=== PATIENT | male | born 1960 | race Caucasian/White ===

== ENCOUNTER 2018-07-31 10:05 | Outpatient (CLI) | payer BC, SELFPAY ==
--- NOTE | 2018-07-31 10:00 | DI.RAD_ITS ---
SYMPTOM/DIAGNOSIS: RT FOOT PAIN RIGHT FOOT: Two views. There is a moderate sized spur at the plantar surface of the calcaneus. There are osteophytes seen in the tarsal bones, particularly the tarsal metatarsal joints. There do appear to be hammer toe deformities of the second through fifth toes. No radiopaque foreign bodies are seen in the soft tissues. This study is limited. No priors for comparison. IMPRESSION: Degenerative changes of the right foot.
== END 2018-07-31 10:25 ==
PROVIDERS: PCP Nurse Practitioner; Visit Provider Physician Assistant
DX: M79.671 Pain in right foot (principal); M19.071 Primary osteoarthritis, right ankle and foot
CPT/HCPCS: 73620

== ENCOUNTER 2018-11-30 00:09 | Outpatient (CLI) | payer BC, SELFPAY ==
[2018-11-30 09:52] LABS: HCT 43.1 % (40.0-50.0); HGB 14.9 g/dL (13.5-17.5); Mean Corp. HGB Concentration 34.6 g/dL (32.0-36.0); Mean Corpuscular Hemoglobin 31.8 pg (27.0-33.0); Mean Corpuscular Volume 92.1 fL (80-95); Mean Platelet Volume 11.4 fL (8.0-11.0); Platelet Count 148 x1000/uL (130-400); RBC 4.68 m/cumm (4.50-6.00); RBC Distribution Width 14.3 % (11.8-14.1); White Blood Cell Count 6.04 k/cumm (4.4-10.8)
[2018-11-30 10:27] LABS: ALT 29 U/L (12-78); AST 21 U/L (15-37); Albumin 3.7 g/dL (3.4-5.0); Alkaline Phosphatase 97 U/L (46-116); Anion Gap 9.1 mmol/L (3-11); BUN 14 mg/dL (7-18); Bilirubin, Total 0.6 mg/dL (0.2-1.0); CO2 27.9 mmol/L (21.0-32.0); CREATININE 0.95 mg/dL (0.70-1.30); Calcium 8.9 mg/dL (8.5-10.1); Chloride 106 mmol/L (98-107); Cholesterol 119 mg/dL (50-200); Glucose 103 mg/dL (70-100); HDL Cholesterol 58 mg/dL (40-60); LDL CHOLESTEROL 50 mg/dL (<100); Potassium 4.1 mmol/L (3.5-5.1); Sodium 143 mmol/L (136-145); Total Protein 6.7 g/dL (6.4-8.2); Triglyceride 59 mg/dL (30-150)
[2018-11-30 10:48] LABS: ESR 6 MM/HR (1-20)
[2018-12-02 12:35] LABS: Lyme Ab w Rflx to Lyme Confirm Negative
[2018-12-02 13:06] LABS: Rheumatoid Factor <8 IU/mL (<12.5)
[2018-12-02 14:01] LABS: ANA Interpretation Negative (NEGAT)
== END 2018-11-30 00:29 ==
PROVIDERS: PCP Nurse Practitioner; Visit Provider Nurse Practitioner
DX: F32.9 Major depressive disorder, single episode, unspecified (principal); M25.549 Pain in joints of unspecified hand; R53.83 Other fatigue; Z13.220 Encounter for screening for lipoid disorders
CPT/HCPCS: 36415; 80053; 80061; 83721; 85027; 85652; 86038; 86431; 86618

== ENCOUNTER 2019-09-27 09:00 | Outpatient (CLI) | payer BC, SELFPAY ==
[2019-09-27 11:41] LABS: ALT 28 U/L (16-63); AST 7 U/L (15-37); Alkaline Phosphatase 105 U/L (46-116); Anion Gap 7.7 mmol/L (3-11); BUN 18 mg/dL (7-18); Bilirubin, Total 0.6 mg/dL (0.2-1.0); CO2 29.3 mmol/L (21.0-32.0); CREATININE 0.89 mg/dL (0.70-1.30); Calcium 8.9 mg/dL (8.5-10.1); Calculated LDL 63 mg/dL; Chloride 105 mmol/L (98-107); Cholesterol 126 mg/dL (<200); Glucose 93 mg/dL (74-106); HDL Cholesterol 54 mg/dL (40-60); Potassium 4.4 mmol/L (3.5-5.1); Sodium 142 mmol/L (136-145); Total Protein 6.7 g/dL (6.4-8.2); Triglyceride 47 mg/dL (<150); Vitamin B12 474 pg/mL (193-986)
[2019-09-28 09:23] LABS: Hemoglobin A1C 5.7 % (4.5-6.2)
[2019-09-29 12:58] LABS: PSA, Screening 1.4 ng/mL (0.0-3.5)
[2019-09-29 15:52] LABS: Albumin 64.3 % (55.8-66.1); Total Protein 6.7 g/dL (6.3-8.2)
== END 2019-09-27 09:20 ==
PROVIDERS: PCP Nurse Practitioner; Visit Provider Nurse Practitioner
DX: R73.01 Impaired fasting glucose (principal); R41.89 Other symptoms and signs involving cognitive functions and awareness; R41.840 Attention and concentration deficit; R41.3 Other amnesia; G62.9 Polyneuropathy, unspecified; E66.9 Obesity, unspecified; Z12.5 Encounter for screening for malignant neoplasm of prostate
CPT/HCPCS: 36415; 80053; 80061; 84153; 82607; 83036; 84165; 84443

== ENCOUNTER 2019-10-02 15:12 | Outpatient (CLI) | payer BC, SELFPAY ==
--- NOTE | 2019-10-02 14:46 | DI.RAD_ITS ---
EXAM: XR KNEE LT 3V AP,LAT,ZEV INDICATION: left knee pain. COMPARISON: No exams were available for comparison TECHNIQUE: 2D digital imaging was performed. FINDINGS: The joint spaces are well maintained. There is spurring at the articular aspect of the patella. No joint effusion is visible. There are prominent varicosities. IMPRESSION: Degenerative changes of the patellofemoral joint.
== END 2019-10-02 15:32 ==
PROVIDERS: PCP Nurse Practitioner; Visit Provider Nurse Practitioner
DX: M25.562 Pain in left knee (principal); M22.8X2 Other disorders of patella, left knee
CPT/HCPCS: 73562

== ENCOUNTER 2019-10-07 00:39 | Outpatient (CLI) | payer BC, SELFPAY ==
--- NOTE | 2019-10-07 08:30 | ETT_ITS ---
APPROVED REPORT Exam: Exercise Treadmill Patient Location: Out-Patient Room/Bed: Stress Nurse: Corinna Yoon RN BMI: 32.32 Baseline Rhythm: Sinus with ventricular trigeminy. Indications: Family h/o heart disease. SOB. Cardiac arrythmia. Medical History Medical History: Depression Allergies: No known drug allergies Cardiac Risk Factors: FHX of CAD Exercise History: Physically active Physical Disabilities: Knees Lung Sounds: Clear to auscultation Heart Sounds: Bradycardia Stress Test Details Test: Exercise stress testing was performed using a Manuel protocol. Rest Stress HR Max Heart Rate (APMHR): 163 bpm Resting HR Supine: 50 bpm Target HR (85% APMHR): 138 bpm Resting HR Standin bpm Max HR Achieved: 140 bpm % of APMHR: 85 HR response to stress: Normal HR response to stress BP Resting BP Supine: 158/94 mmHg Resting BP Standin/78 mmHg Max BP: 184/80 mmHg Recovery BP: 150/80 mmHg BP response to stress: Normal blood pressure response to stress. ECG Resting ECG: Sinus Bradycardia with multiple PVCs Ectopy: PVCs. Stress ECG: Sinus Tachycardia with frequent ventricular bigeminy and trigeminy patterns, frequent PVCs. ST Change: No significant ST segment changes. Recovery ECG: Sinus Rhythm Recovery ST Change: normal Recovery Arrhythmia: Intermittent ventricular trigeminy. PVCs Clinical Time of Stop for Manuel: 10:00 Reason for Termination: Fatigue Stress Symptoms: General Fatigue Exercise duration: 10 min00 sec Highest Stage Achieved: Stage 4: 4.2 mph at 16% grade. Exercise capacity: 11.80 METs Functional Capacity: Average Capacity Scale: Active Stress ECG Conclusion 1. Patient exercised for 10 minutes (11.8 METS) 2. Patient had no symptoms of ischemia during exercise. 3. There were frequent PVCs during stress and recovery. 4. There is no evidence of ischemia on ECG. 5. The Damon Score (10) estimates an annual cardiovascular mortality of 0% and a five year survival of 96%. Using the Damon Score there is a low probability of any angiographic coronary disease. Protocol Used: Manuel Protocol Stress Test Summary STAGE Time (mins) Speed (mph) Grade (%) HR BP SYMPTOMS METS Supine 50 158/94 Standing 55 160/78 1 3 1.7 10 82 164/80 4.6 2 6 2.5 12 104 170/80 7 3 9 3.4 14 130 184/80 10.2 4 12 4.2 16 140 12.9 17.2 1 min recovery 122 3 min recovery 93 170/60 6 min recovery 83 150/80
== END 2019-10-07 00:59 ==
PROVIDERS: PCP Nurse Practitioner; Visit Provider Nurse Practitioner
DX: R06.02 Shortness of breath (principal); I49.9 Cardiac arrhythmia, unspecified; I49.3 Ventricular premature depolarization; Z82.49 Family history of ischemic heart disease and other diseases of the circulatory system
CPT/HCPCS: 93017

== ENCOUNTER 2019-10-16 00:38 | Outpatient (CLI) | payer BC, SELFPAY ==
--- NOTE | 2019-10-16 10:21 | DI.US_ITS ---
APPROVED REPORT EXAM: Comprehensive 2D, Doppler, and color-flow Echocardiogram Patient Location: Out-Patient Evp General Counsel: Jada Forbes RDCS (AE) Indications: two episodes SOB, irregular HR, fatigue, dizziness. family hx of heart disease. irregula r HR. z82.49 family hx of ischemic heart disease and other disease of circulatory system. i49.9 car diac arrhythmia, unspecified Conclusion Borderline LVH , EF 60-65% Wall motion is normal Left atrium is mildly dilated Trace aortic regurgitation Thickened mitral leaflets with trace to mild regurgitation Mild tricuspid regurgitaiton. Trace pulmonic regurgitation. Estimated RVSP 33 mm Hg Wall motion Left Ventricle The left ventricle is normal size. The left ventricular systolic function is normal. The left ventric ular ejection fraction is within the normal range. Borderline left ventricular hypertrophy. There is normal LV segmental wall motion. abnormal relax with valsalva. LVEF is estimated to be 60-65%. Right Ventricle The right ventricle is normal size. The right ventricular systolic function is normal. Atria Left atrium is mildly dilated. The right atrium size is top normal. Aortic Valve The Aortic valve is mildly thickened. Aortic valve is trileaflet. There is no aortic valvular stenosi s. Trace aortic regurgitation. Mitral Valve Mitral valve leaflets are mildly thickened. Trace to mild mitral regurgitation. Tricuspid Valve Tricuspid valve leaflets are thickened but open well. Mild tricuspid regurgitation. Pulmonic Valve The pulmonary valve appears normal in structure. Trace pulmonic regurgitation. Great Vessels The aortic root is normal in size. IVC is mildly dilated, and collapses >50% with inspiration. Pericardium There is no pericardial effusion. 2D Dimensions IVSd 1.25 cm M: 0.6-1.2 LV EDV A2C 129.10 mL PWd 1.10 cm M: 0.6 - 1.2 LV EDV A4C 140.50 mL LVDd 5.70 cm M: 4.2 - 5.8 LA Volume Index A2C 35.84 mL/m2 LVDs 3.70 cm M: 2.5 - 4.0 LA Volume Index A4C 47.06 mL/m2 Aortic Root 3.15 cm M: 3.1 - 3.7 LA Volume Index Biplane 41.14 mL/m2 RA Area A4C 18.73 cm2 LA Area A4C 27.91 cm2 LVOT 2.10 cm (M/F) 1.5-2.5 LA Area A2C 24.31 cm2 Ascending Aorta 3.40 cm M: 2.6 - 3.4 EF AP4 61.28 % LVEF (Teich) 63.08 % EF AP2 60.26 % LVEF (Jacob's) 61.32 % M: 52 - 72 EF BP 61.32 % LV Volume 97.33 mL M: 62 - 150 LV Volume Index 41.59 mL/m2 M: 34 - 74 FS 34.65 % LV Diastology E/A Ratio 1.7 MED E' 0.19 (>0.07 m/s) LV E/e MED 6.85 (<14) LAT E' 0.12 (>0.1 m/s) LV E/e LAT 10.50 (<14) Aortic Valve LVOT Area 3.47 cm2 LVOT Vmax 1.65 m/s LVOT Mean Donnell. 1.05 m/s LVOT Peak Gr. 10.8 mmHg LVOT Mean Gr. 5.4 mmHg AoV Area/ BSA (Vmax) 1.23 cm2/m2 LVOT VTI 0.367 m AoV Vmax 1.98 (0.5-1.3 m/s) AIRAM Mean Donnell. Index 1.15 cm2/m2 AoV Mean Donnell. 1.35 m/s AoV Peak Grad 15.7 mmHg AoV Mean Grad 8.4 (<5 mmHg) AoV VTI 0.482 (0.18-0.25 m) AoV Area VTI 2.86 (2.5-4.5 cm2) AoV Area/ BSA (VTI) 1.22 cm/m2 Mitral Valve MV E Max Donnell. 1.29 (0.4-1.3 m/s) MV A Velocity 0.75 (0.4-1.3 m/s) E/A Ratio 1.63 MV Decel. Time 232.05 (160-240 msec) MV PHT 67.30 msec MVA PHT 3.25 cm2 Pulmonary Valve PV Peak Velocity 1.15 (0.5-1.5 m/s) [place] End VMAX 99.78 cm/s RVOT Peak Gr. 1.78 mmHg RVOT Peak Donnell. 0.67 m/s RVOT Mean Gr. 0.95 mmHg RVOT VTI 0.15 m Tricuspid Valve TR P. Velocity 2.49 m/s TV Regurg Vmax 2.49 m/s RAP Estimate 8.00 mmHg RVSP 32.82 mmHg TR P. Gradient 24.80 mmHg
== END 2019-10-16 00:58 ==
PROVIDERS: PCP Nurse Practitioner; Visit Provider Nurse Practitioner
DX: R06.02 Shortness of breath (principal); I49.9 Cardiac arrhythmia, unspecified; R53.83 Other fatigue; R42 Dizziness and giddiness; I34.8 Other nonrheumatic mitral valve disorders; Z82.49 Family history of ischemic heart disease and other diseases of the circulatory system
CPT/HCPCS: 93306

== ENCOUNTER 2020-03-10 16:03 | Emergency (ER) | payer BC, SELFPAY ==
[2020-03-10 16:06] VITALS: BP 161/97; PULSE 55; RESP 16; TEMP 36.8; O2SAT 98
--- NOTE | 2020-03-10 16:24 | ED.GENADUL_ITS ---
Discharge Plan Disposition Patient Disposition: HOME Condition: Stable Discharge Details Chief Complaint: Laceration Clinical Impression: Laceration of toe Primary Care Provider: Chayo Madden ED Provider: Bekah Chou Home Meds and New Rx's Prescriptions: Continued econazole 1 % cream 1 applic Topical DAILY PRN (Reason: groin rash) Qty: 30 RF: 3 methylphenidate HCl [Concerta] 54 mg tablet extended release 24hr 54 mg PO DAILY MDD 54mg Qty: 30 RF: 0 acetaminophen 325 MG tablet 650 mg PO DAILY PRNRF: 0 loratadine 10 MG tablet 10 mg PO DAILY PRNRF: 0 famotidine 20 MG tablet 20 mg PO DAILY PRNRF: 0 triamcinolone acetonide 15 GM cream 1 beatriz Topical DAILY PRNQty: 2 RF: 1 elastic stockings 2 units Miscellaneous Qty: 2 RF: 1 ibuprofen 200 mg tablet 600 mg PO .QD PRNRF: 0 sertraline 100 mg tablet 50 mg PO DIRECTED RF: 0 Discharge Instructions Instructions: Laceration (ED) Additional Instructions: Keep wound clean and dry. Cover wound with bandage if risk of contamination. Otherwise you can keep the wound open to air if resting at home to allow edges to dry and heal. Alternate tylenol and motrin as needed and directed for pain. Return to the emergency department or follow-up with your primary care doctor in 1 week for suture removal. Discharge Data Discharge Date/Time-TO BE ENTERED AT DEPARTURE: 03/10/20 17:42 Discharge Physician: Bekah Chou Medical Decision Making 60-year-old male presents with left great toe laceration sustained with a chainsaw at home prior to arrival. There is a 2 cm straight laceration with 1 cm flap proximally on dorsal aspect of proximal phalanx. Neurovascular intact. X-ray obtained and negative. Toe anesthetized with digital block and irrigated. 3 sutures placed. Topical antibiotic ointment and nonadherent dressing and tube gauze applied. Patient advised to keep wound clean and dry. Advised to return here or follow-up with his primary care doctor in 1 week for suture removal. Insert return precautions Medical Records Medical records reviewed: Yes I reviewed the patient's medical records. Imaging Data Radiologic Study: Radiologist's impression: XR Left Toe(s) Exam date and time: 03/10/2020 4:43 PM Age: 60 years old Clinical indication: Other: Chainsaw cut toe, R/O fracture/fb TECHNIQUE: Imaging protocol: XR Left toes. Views: Minimum 2 views. COMPARISON: No relevant prior studies available. FINDINGS: Bones/joints: Mild degenerative changes. No acute fracture. No acute malalignment. Soft tissues: Soft tissue swelling 1st toe. No radiodense foreign body. IMPRESSION: No acute bony abnormality. HPI General Mode of arrival: ambulatory . Date/Time Provider Initiated Documentation: 03/10/20 16:09 . Limitations to Documentation: no limitations . Information obtained by: patient . History of Present Illness 60 year old M presents to the emergency department with the chief complaint of L great toe laceration sustained with chainsaw at home , described as moderate, Quality is described as sharp, and is localized to the left and lower extremity (1st toe). Patient started experiencing this hour(s) (1) and it has been constant. No relieving factors improve symptom(s), No exacerbating factors reported . Patient notes no other symptoms.. Patient did receive the following treatments prior to arrival, none Related Data Home Medications Medication Instructions Recorded Confirmed acetaminophen 650 mg PO DAILY PRN 02/20/13 03/10/20 famotidine 20 mg PO DAILY PRN tab-cap 02/20/13 03/10/20 loratadine 10 mg PO DAILY PRN 02/20/13 03/10/20 triamcinolone acetonide 1 beatriz TOPICAL DAILY PRN #2 script 02/25/15 03/10/20 ibuprofen 200 mg tablet 600 mg PO .QD PRN tab 09/24/19 03/10/20 econazole 1 % topical cream 1 applic TOPICAL DAILY PRN #30 gm 10/02/19 03/10/20 methylphenidate HCl 54 mg 54 mg PO DAILY #30 tab MDD 54mg 01/01/20 03/10/20 tablet,extended release 24 hr sertraline 50 mg PO DIRECTED 03/10/20 03/10/20 Previous Rx's Medication Instructions Recorded econazole 1 % topical cream 1 applic TOPICAL DAILY PRN #30 gm 10/02/19 methylphenidate HCl 54 mg 54 mg PO DAILY #30 tab MDD 54mg 01/01/20 tablet,extended release 24 hr Allergies Allergy/AdvReac Type Severity Reaction Status Date / Time No Known Allergies Allergy Verified 03/10/20 16:09 General Stated Complaint: Laceration YENI: 3 Review of Systems All systems reviewed & are unremarkable except as noted in HPI and below PFSH Medical History (Updated 03/10/20 @ 17:39 by Bekah Chou DO) 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 Concentration deficit (Ruled-out) Depression Depressive disorder, not elsewhere classified (Chronic 06/02/13) Difficulty processing information (Acute) GERD (gastroesophageal reflux disease) Poor memory (Acute) Surgical History Colonoscopy - IV Sedation (05/14/15) Colonoscopy - MAC (05/03/18) Open Carpal Tunnel release right Tonsillectomy and adenoidectomy Social History (Updated 01/01/20 @ 15:52 by Radha No LPN) Smoking/Tobacco Use Status: Former Tobacco Use Tobacco: How many years used: 10 Alcohol Intake: current Alcohol Intake frequency: holidays/special occasions only Alcohol type: beer and wine Drug use: Never Substance use type: does not use Household members: spouse Number of Children: 0 Communication Needs: None current occupation: [employer] Current gender identity: male What type of physical activity do you participate in: other Details: wood,shovel, snowshoe Seatbelt use: sometimes Working smoke detector in home: Yes Fire extinguisher in home: Yes Carbon monox detector in home: Yes Do you feel safe at home: Yes Do you feel safe in your relationship?: Yes Exam Const General: cooperative, healthy appearing and no acute distress HENMT Head: normal to inspection Mouth: oral mucosae normal Eyes General: appearance normal, both eyes and all related structures Neck Neck: normal visual inspection Resp Effort & Inspection: normal respiratory effort and able to speak in complete sentences Cardio Rate: regular rate Skin General skin exam: no rashes or lesions noted Neuro General: patient alert, patient awake and patient oriented x3 Motor: muscle tone normal throughout Extrem Ankle/foot/toe images: 1. 2cm straight laceration with 1 cm flap on medial aspect noted on dorsal aspect of proximal phalanx. Bleeding controlled. No obvious foreign bodies noted. No deformities noted. No pain with range of motion. Other: Left DP/PT pulses intact. Psych Appearance: grossly normal Affect: normal affect Course Vital Signs Vital signs: Vital Signs Temperature 98.2 F 03/10/20 16:06 Pulse 55 L 03/10/20 16:06 Respiratory Rate 16 03/10/20 16:06 Blood Pressure 161/97 H 03/10/20 16:06 Pulse Oximetry 98 03/10/20 16:06 Temperature 98.2 F 03/10/20 16:06 Temperature Source Skin 03/10/20 16:06 Pulse 55 L 03/10/20 16:06 Respiratory Rate 16 03/10/20 16:06 Respiratory Effort 03/10/20 16:11 Blood Pressure 161/97 H 03/10/20 16:06 Blood Pressure Position Sitting 03/10/20 16:06 Pulse Oximetry 98 03/10/20 16:06 Oxygen Delivery Method Room Air 03/10/20 16:06 Oxygen Flow Rate 0 03/10/20 16:06 Pain Level 0 03/10/20 16:06 Procedures Laceration Laceration 1: Site: lower extremity (1st toe) Side (If applicable): left Size (cm): 2 Description: linear and flap Depth: simple, single layer Local Anesthetic: Lidocaine 1% Amount of anesthesia used (mL): 4 Pre-repair: wound explored, irrigated extensively and deep structures intact Skin layer closed with: nylon Size (cm): 5-0 Number of sutures: 3 Technique: simple, interrupted
[2020-03-10] MEDS: Acetaminophen 500 MG TAB (16:30)
--- NOTE | 2020-03-10 16:42 | DI.RAD_ITS ---
EXAM: XR TOE LT GREAT CLINICAL HISTORY: chainsaw cut toe, r/o fracture/fb. TECHNIQUE: 2D digital imaging was performed. COMPARISON: No exams were available for comparison FINDINGS: BONES: No acute fracture is present. No bony destructive lesion is seen. Mild degenerative changes. JOINTS: No dislocation present. SOFT TISSUE: There is soft tissue swelling of the great toe. No radiopaque foreign body is identifie d. IMPRESSION: No evidence of acute fracture, dislocation, or subluxation. No radiopaque foreign body. DATA REPOSITORY: RADIATION DOSE DELIVERED:
--- NOTE | 2020-03-10 17:01 | DI.VRAD_ITS ---
PROCEDURE INFORMATION: Exam: XR Left Toe(s) Exam date and time: 03/10/2020 4:43 PM Age: 60 years old Clinical indication: Other: Chainsaw cut toe, R/O fracture/fb TECHNIQUE: Imaging protocol: XR Left toes. Views: Minimum 2 views. COMPARISON: No relevant prior studies available. FINDINGS: Bones/joints: Mild degenerative changes. No acute fracture. No acute malalignment. Soft tissues: Soft tissue swelling 1st toe. No radiodense foreign body. IMPRESSION: No acute bony abnormality. Dictated and Authenticated by: Jose Landaverde MD. Ordering:SHAYNA Godfrey MD
== END 2020-03-10 17:42 | disposition home or self-care (01) ==
PROVIDERS: Emergency Provider Physician Assistant; PCP Nurse Practitioner
DX: S91.112A Laceration without foreign body of left great toe without damage to nail, initial encounter (principal); W29.3XXA Contact with powered garden and outdoor hand tools and machinery, initial encounter
CPT/HCPCS: 12001; 73660

== ENCOUNTER 2020-12-10 02:45 | Outpatient (CLI) | payer BC, SELFPAY ==
[2020-12-10 07:48] LABS: Hemoglobin A1C 5.7 % (<5.7)
[2020-12-10 08:10] LABS: HGB 14.6 g/dL (13.5-17.5); MCH 30.9 pg (27.0-33.0); MCV 91.1 fL (80-95); MPV 10.7 fL (8.0-11.0); Platelet Count 180 10^3/uL (130-400); RBC 4.72 10^6/uL (4.36-5.78); RDW 12.5 % (11.8-14.1); RDW-SD 41.8 fL; WBC 7.76 10^3/uL (4.4-10.8)
[2020-12-10 09:46] LABS: ALT 31 U/L (16-63); AST 17 U/L (15-37); Alkaline Phosphatase 107 U/L (46-116); Anion Gap 10.5 mmol/L (3-11); BUN 16 mg/dL (7-18); Bilirubin, Total 0.7 mg/dL (0.2-1.0); CO2 28.5 mmol/L (21.0-32.0); Calculated LDL 52 mg/dL (<100); Chloride 103 mmol/L (98-107); Cholesterol 112 mg/dL (<200); Glucose 99 mg/dL (74-106); HDL Cholesterol 48 mg/dL (40-60); Sodium 142 mmol/L (136-145); TSH (W/Ref FT4) 1.19 uIU/mL (0.36-3.74); Total Protein 6.8 g/dL (6.4-8.2); Triglyceride 60 mg/dL (<150); Vitamin B12 448 pg/mL (193-986)
[2020-12-10 17:13] LABS: PSA, Screening 1.7 ng/mL (0.0-3.5)
== END 2020-12-10 02:46 | disposition home or self-care (01) ==
LOC: LBO 02:45
PROVIDERS: PCP Nurse Practitioner; Visit Provider Nurse Practitioner
DX: F90.2 Attention-deficit hyperactivity disorder, combined type (principal); I10 Essential (primary) hypertension; E66.9 Obesity, unspecified; I87.2 Venous insufficiency (chronic) (peripheral); R20.2 Paresthesia of skin; Z12.5 Encounter for screening for malignant neoplasm of prostate
CPT/HCPCS: 36415; 80053; 80061; 84153; 85027; 82607; 83036; 84443

== ENCOUNTER 2021-01-31 15:20 | Outpatient (CLI) | payer BC, SELFPAY ==
--- NOTE | 2021-01-31 15:15 | RT.EKG_ITS ---
APPROVED REPORT Exam: Resting ECG Patient Location: O HR:50 bpm ECG Measurements Heart Rate 50 AXIS LA 170 P 45 QRSd 117 QRS 37 QT 407 T 31 QTc 373 Conclusion Sinus bradycardia...rate< 60 Nonspecific intraventricular conduction delay...QRSd >115mS, not LBBB/RBBB
== END 2021-01-31 15:21 | disposition home or self-care (01) ==
LOC: DI.KIM 15:20
PROVIDERS: PCP Nurse Practitioner; Visit Provider Nurse Practitioner
DX: Z51.81 Encounter for therapeutic drug level monitoring (principal)
CPT/HCPCS: 93010

== ENCOUNTER 2021-02-19 14:23 | Emergency (ER) | payer BC, SELFPAY ==
[2021-02-19 14:26] VITALS: BP 136/74; PULSE 70; RESP 16; TEMP 36.4; O2SAT 97
--- NOTE | 2021-02-19 14:30 | DI.RAD_ITS ---
Exam(s) XR FINGER LT RING EXAM: XR FINGER LT RING EXAM DATE/TIME: CLINICAL HISTORY: laceration, ?fracture. TECHNIQUE: 2D digital imaging was performed. COMPARISON: None. FINDINGS: BONES: There is an acute transverse fracture through the terminal tuft of the ring finger. The dista l fracture fragment is displaced distally and dorsally. No bony destructive lesion is seen. Degenera tive changes are seen in the finger. JOINTS: No dislocation is present. SOFT TISSUE: There is soft tissue swelling of the 4th finger. IMPRESSION: Acute displaced terminal tuft fracture of the ring finger. DATA REPOSITORY: RADIATION DOSE DELIVERED:
--- NOTE | 2021-02-19 14:41 | ED.GENADUL_ITS ---
Discharge Plan Disposition Patient Disposition: HOME Condition: Stable Discharge Details Clinical Impression: Laceration of left ring finger, Fracture of phalanx of left ring finger Primary Care Provider: hCayo Madden ED Provider: Praneeth Peres Home Meds and New Rx's Prescriptions: New amoxicillin-pot clavulanate [Augmentin] 875-125 mg tablet 1 tab PO BID Qty: 14 RF: 0 Continued econazole 1 % cream 1 applic Topical DAILY PRN (Reason: groin rash) Qty: 30 RF: 3 triamcinolone acetonide 0.1 % cream 1 applic Topical DAILY PRN (Reason: BLE rashes) Qty: 80 RF: 3 ibuprofen 600 mg tablet 600 mg PO TID PRN (Reason: pain) Qty: 180 RF: 5 Vyvanse 60 mg capsule 60 mg PO DAILY MDD 60mg Qty: 28 RF: 0 metoprolol succinate 50 mg tablet extended release 24 hr 50 mg PO DAILY Qty: 90 RF: 3 hydrochlorothiazide 25 mg tablet 25 mg PO DAILY Qty: 90 RF: 3 acetaminophen 325 MG tablet 650 mg PO DAILY PRNRF: 0 loratadine 10 MG tablet 10 mg PO DAILY PRNRF: 0 famotidine 20 MG tablet 20 mg PO DAILY PRNRF: 0 elastic stockings 2 units Miscellaneous Qty: 2 RF: 1 Discharge Instructions Instructions: Skin Adhesive Care (ED) Additional Instructions: call orthopedics Sunday for an appointment if you have redness spreading down the hand, severe worsening pain or feel more ill return to the emergency department Referrals: Kalpesh Rooney MD [ [facility] STAFF PHYSICIAN] - Medical Decision Making 61 yo male comes in with left ring finger injury. He states it got caught in a wood splitter prior to arrival, denies falling or other injuries. Has a posterior distal ring finger laceration that involves the middle of the nail and runs horizontally, and is about 2cm in length. Normal sensation and capillary refill and can fully extend and flex at the mcp, pip and dip joints. Given location of laceration will obtain xray to evaluate for underlying fracture. xray shows distal tuft fracture, closed the wound with sutures and skin adhesive without complications. Will have him f/u with ortho and place on prophylactic antibiotics, return precautions given Differential Diagnosis Differential Diagnosis: laceration, fracture Medical Records Medical records reviewed: Yes I reviewed the patient's medical records. Imaging Data Radiologic Study: Attestation: I personally reviewed and interpreted this imaging study as follows: Imaging: X-Ray Radiologist's impression: IMPRESSION: Displaced tuft fracture of 4th finger. HPI General Mode of arrival: ambulatory . Date/Time Provider Initiated Documentation: 02/19/21 14:23 . Limitations to Documentation: no limitations . Information obtained by: patient . History of Present Illness 61 year old M presents to the emergency department with the chief complaint of left ring finger injury, described as moderate, Patient reports no radiation. Patient started experiencing this hour(s) (1) and it has been constant. No relieving factors improve symptom(s), No exacerbating factors reported . Patient notes no other symptoms.. Patient did receive the following treatments prior to arrival, none Related Data Home Medications Medication Instructions Recorded Confirmed acetaminophen 650 mg PO DAILY PRN 02/20/13 11/30/20 famotidine 20 mg PO DAILY PRN tab-cap 02/20/13 02/19/21 loratadine 10 mg PO DAILY PRN 02/20/13 02/19/21 econazole 1 % topical cream 1 applic TOPICAL DAILY PRN #30 gm 10/02/19 02/19/21 ibuprofen 600 mg tablet 600 mg PO TID PRN #180 tab 01/10/21 02/19/21 triamcinolone acetonide 0.1 % 1 applic TOPICAL DAILY PRN #80 g 01/10/21 02/19/21 topical cream hydrochlorothiazide 25 mg tablet 25 mg PO DAILY #90 tab 01/31/21 02/19/21 lisdexamfetamine 60 mg capsule 60 mg PO DAILY #28 cap MDD 60mg 01/31/21 02/19/21 metoprolol succinate 50 mg 50 mg PO DAILY #90 tab 01/31/21 02/19/21 tablet,extended release 24 hr amoxicillin-pot clavulanate 1 tab PO BID #14 tab 02/19/21 [Augmentin] Previous Rx's Medication Instructions Recorded econazole 1 % topical cream 1 applic TOPICAL DAILY PRN #30 gm 10/02/19 ibuprofen 600 mg tablet 600 mg PO TID PRN #180 tab 01/10/21 triamcinolone acetonide 0.1 % 1 applic TOPICAL DAILY PRN #80 g 01/10/21 topical cream hydrochlorothiazide 25 mg tablet 25 mg PO DAILY #90 tab 01/31/21 lisdexamfetamine 60 mg capsule 60 mg PO DAILY #28 cap MDD 60mg 01/31/21 metoprolol succinate 50 mg 50 mg PO DAILY #90 tab 01/31/21 tablet,extended release 24 hr amoxicillin-pot clavulanate 1 tab PO BID #14 tab 02/19/21 [Augmentin] Allergies Allergy/AdvReac Type Severity Reaction Status Date / Time No Known Allergies Allergy Verified 02/19/21 14:41 General Stated Complaint: Orthopedic YENI: 3 Review of Systems All systems reviewed & are unremarkable except as noted in HPI and below Constitutional Constitutional: Denies chills, Denies fever(s) and Denies weakness Cardiovascular Cardiovascular: Denies chest pain and Denies dyspnea Respiratory Respiratory: Denies cough and Denies dyspnea Gastrointestinal Gastrointestinal: Denies abdominal pain, Denies nausea and Denies vomiting Neurologic Neurologic: Denies weakness Psychiatric Psychiatric: Denies depression [facility] Medical History (Updated 02/19/21 @ 16:01 by Praneeth Peres MD) 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 Anxiety Concentration deficit Depression Depressive disorder, not elsewhere classified (06/02/13) Difficulty processing information GERD (gastroesophageal reflux disease) HTN, goal to be determined Lower extremity edema Poor memory Varicose veins of both lower extremities Venous insufficiency Venous stasis dermatitis Surgical History Colonoscopy - IV Sedation (05/14/15) Colonoscopy - MAC (05/03/18) Open Carpal Tunnel release right Tonsillectomy and adenoidectomy Family History Grandmother Personal history of malignant neoplasm colon cancer Mother COPD (chronic obstructive pulmonary disease) Father , age 66, cause: [place],Prostate cancer Prostate cancer Myocardial infarction Depression OCD (obsessive compulsive disorder) Sister Diabetes Uncle Lung cancer Paternal Grandfather Alcohol abuse Social History (Updated 01/01/20 @ 15:52 by Radha No LPN) Smoking/Tobacco Use Status: Former Tobacco Use Tobacco: How many years used: 10 Smoking risk assessment performed?: Yes Alcohol Intake: current Alcohol Intake frequency: holidays/special occasions only Alcohol type: beer and wine Drug use: Never Substance use type: does not use Household members: spouse Number of Children: 0 Communication Needs: None 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 Current gender identity: male What type of physical activity do you participate in: other Details: wood,shovel, snowshoe Seatbelt use: sometimes Working smoke detector in home: Yes Fire extinguisher in home: Yes Carbon monox detector in home: Yes Do you feel safe at home: Yes Do you feel safe in your relationship?: Yes Exam Const General: no acute distress Orientation: alert HENMT Head: normal to inspection Ears: external ears normal General nose exam: external nose normal Mouth: moist mucous membranes Eyes General: appearance normal, both eyes and all related structures Neck Neck: normal visual inspection Resp Effort & Inspection: normal respiratory effort and able to speak in complete sentences Cardio Rate: regular rate Skin General skin exam: no rashes or lesions noted Neuro General: patient alert and patient oriented x3 Extrem General: capillary refill normal Psych Mental Status: mental status grossly normal Course Vital Signs Vital signs: Vital Signs Temperature 36.4 C L 02/19/21 14:26 Pulse 70 02/19/21 14:26 Respiratory Rate 16 02/19/21 14:26 Blood Pressure 136/74 02/19/21 14:26 Pulse Oximetry 97 02/19/21 14:26 Temperature 36.4 C L 02/19/21 14:26 Temperature Source Temporal Artery Scan 02/19/21 14:26 Pulse 70 02/19/21 14:26 Respiratory Rate 16 02/19/21 14:26 Respiratory Effort Non-Labored 02/19/21 14:36 Blood Pressure 136/74 02/19/21 14:26 Blood Pressure Position Sitting 02/19/21 14:26 Pulse Oximetry 97 02/19/21 14:26 Oxygen Delivery Method Room Air 02/19/21 14:26 Oxygen Flow Rate 0 02/19/21 14:26 Pain Level 4 02/19/21 14:26 Procedures Laceration Laceration 1: Site: upper extremity Side (If applicable): left Size (cm): 2 Description: linear Depth: simple, single layer Local Anesthetic: Lidocaine 1% Amount of anesthesia used (mL): 6 Pre-repair: wound explored and irrigated extensively Skin layer closed with: nylon Size (cm): 4-0 Number of sutures: 2 (and skin adhesive) Technique: simple, interrupted
--- NOTE | 2021-02-19 15:36 | DI.VRAD_ITS ---
PROCEDURE INFORMATION: Exam: XR Left Finger(s) Exam date and time: 02/19/2021 2:42 PM Age: 61 years old Clinical indication: Other: Laceration of the ring finger, left hand TECHNIQUE: Imaging protocol: XR Left fingers. Views: Minimum 2 views. COMPARISON: No relevant prior studies available. FINDINGS: Bones/joints: Displaced tuft fracture of 4th finger. Distal fragment is displaced dorsally. 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 Milder degenerate arthritis in several MCP and IP joints. Soft tissues: Soft tissue swelling about the left 4th finger. IMPRESSION: Displaced tuft fracture of 4th finger. Dictated and Authenticated by: Nicolette Morales MD. Ordering:REX Dacosta MD
[2021-02-19] MEDS: Ketorolac 15 MG/ML VIAL IM (16:08)
== END 2021-02-19 16:23 | disposition home or self-care (01) ==
PROVIDERS: Emergency Provider Emergency Medicine; PCP Nurse Practitioner
DX: S61.215A Laceration without foreign body of left ring finger without damage to nail, initial encounter (principal); S62.635A Displaced fracture of distal phalanx of left ring finger, initial encounter for closed fracture; W29.8XXA Contact with other powered hand tools and household machinery, initial encounter
CPT/HCPCS: 12001; 96372; 99283; 73140; J1885

== ENCOUNTER 2021-08-16 15:53 | Emergency (ER) | payer BC, SELFPAY ==
[2021-08-16] VITALS (8 sets, daily range): BP systolic 109–143; BP diastolic 61–70; PULSE 83–93; RESP 10–22; TEMP 36.7–38.2; O2SAT 91–100
[2021-08-16 17:18] LABS: Abs Immature Grans 0.37 10^3/uL (0.0-0.06); Basophils % 0.1; HCT 39.3 % (40.0-50.0); HGB 13.5 g/dL (13.5-17.5); Immature Grans % 1.4; Lymphocytes % 5.8; MCH 31.5 pg (27.0-33.0); MCHC 34.4 % (32.0-36.0); MCV 91.6 fL (80-95); MPV 10.8 fL (8.0-11.0); Monocytes % 4.3; Nucleated RBC 0 %; Platelet Count 154 10^3/uL (130-400); RBC 4.29 10^6/uL (4.36-5.78); RDW 13.3 % (11.8-14.1); RDW-SD 44.8 fL
[2021-08-16 17:21] LABS: Absolute Basophil Count 0.03 10^3/uL (0.0-0.2); Absolute Lymphocyte Count 1.55 10^3/uL (1.2-3.4); Absolute Monocyte Count 1.15 10^3/uL (0.1-0.8); Absolute Neutrophil Count 23.65 10^3/uL (1.2-6.7); WBC 26.75 10^3/uL (4.4-10.8)
[2021-08-16 17:31] LABS: ALT 22 U/L (16-63); AST 15 U/L (15-37); Albumin 3.7 g/dL (3.4-5.0); Alkaline Phosphatase 80 U/L (46-116); BUN 22 mg/dL (7-18); Bilirubin, Total 1.4 mg/dL (0.2-1.0); C-Reactive Protein 4.41 mg/dL (0.0-0.3); CREATININE 1.3 mg/dL (0.70-1.30); Calcium 8.8 mg/dL (8.5-10.1); Chloride 100 mmol/L (98-107); Glucose 143 mg/dL (74-106); Potassium 3.7 mmol/L (3.5-5.1); Sodium 137 mmol/L (136-145); Total Protein 6.5 g/dL (6.4-8.2)
[2021-08-16 17:45] LABS: Diff Comment Agrees w/ Instrument; Neutrophils % 88.4; RBC Morphology Normal
[2021-08-16 17:50] LABS: Lactate 1.7 mmol/L (0.6-1.4)
[2021-08-16] MEDS: Normal Saline 1,000 ML 1000 ML IV (18:21)
[2021-08-16] MEDS: Acetaminophen 500 MG TAB 1000 MG PO (18:21)
[2021-08-16 18:23] LABS: Bilirubin Negative (Negative); Blood Negative (Negative); Clarity Clear (Clear); Glucose Negative (Negative); Ketones Negative (Negative); Leukocyte Esterase Negative (Negative); Nitrite Negative (Negative); Specific Gravity 1.015 (1.005-1.025); Urobilinogen 0.2 EU/dL (Up TO 0.2); pH 7.5 (5-8)
[2021-08-16] MEDS: VANCOMYCIN/WATER (PEG) 2 GM/400 ML BAG IVPB (18:23)
[2021-08-16] MEDS: PIPERACILLIN/TAZO 3.375 GM in Normal Saline 50 ML IVPB (18:41)
--- NOTE | 2021-08-16 19:30 | W.ED.GENAD ---
Discharge Plan Disposition Patient Disposition: [facility] Condition: Serious Discharge Details Clinical Impression: Cellulitis, Post-operative pain Primary Care Provider: Chayo Madden ED Provider: Miesha Martinez Home Meds and New Rx's Prescriptions: No Action econazole 1 % cream 1 applic Topical DAILY PRN (Reason: groin rash) Qty: 30 RF: 3 triamcinolone acetonide 0.1 % cream 1 applic Topical DAILY PRN (Reason: BLE rashes) Qty: 80 RF: 3 ibuprofen 600 mg tablet 600 mg PO TID PRN (Reason: pain) Qty: 180 RF: 5 lisinopril 20 mg tablet 20 mg PO DAILY Qty: 90 RF: 3 lisdexamfetamine 60 mg capsule 60 mg PO DAILY MDD 60mg Qty: 28 RF: 0 hydrochlorothiazide 25 mg tablet 25 mg PO DAILY Qty: 90 RF: 3 acetaminophen 325 MG tablet 650 mg PO DAILY PRNRF: 0 loratadine 10 MG tablet 10 mg PO DAILY PRNRF: 0 famotidine 20 MG tablet 20 mg PO DAILY PRNRF: 0 elastic stockings 2 units Miscellaneous Qty: 2 RF: 1 Medical Decision Making <Miesha Martinez PA - Last Filed: 08/16/21 22:23> Patient is neurovascularly intact, his pain has been increasing since he has been in the emergency room, he does not have any crepitus, he is neurovascularly intact, and my suspicion is lower for compartment syndrome given that he is a month and a half postoperative status He also does not have any crepitus or significant swelling to the extremity, lower suspicion for necrotizing fasciitis ED suspect he has cellulitis with possible abscess formation and will need imaging, unfortunately we do not have ultrasound available, I will leave additional imaging to the discretion of the admitting provider, Dr. Duque, vascular surgeon at [facility] has accepted this patient in transport He meets sepsis criteria and warrants IV antibiotics, Zosyn, vancomycin were initiated Received 1 g of Tylenol He received morphine and Dilaudid in the emergency room He is stable for transfer at this time <Bekah Chou DO - Last Filed: 08/16/21 19:34> I have seen and examined this patient. I discussed case and reviewed note with Miesha Martinez and I agree with plan and note as documented. HPI <KESHAV Duque - Last Filed: 08/16/21 22:23> General Mode of arrival: ambulatory. Date/Time Provider Initiated Documentation: 08/16/21 16:00. Limitations to Documentation: no limitations. Information obtained by: patient. HPI Narrative: This 61-year-old male presents with history of obstructive sleep apnea, hypertension, venous insufficiency, persistent lower extremity edema, hypertension for worsening pain and swelling to his right lower extremity. He is status post GSV surgery on 05 July at [facility]. He has had a persistent lump to one of the stab wound site but was last evaluated on the and did not look infectious at that time. He is also had 3 ultrasound all of which were negative. He has not had any chest pain or shortness of breath. He states he feels tired today but worked. He denies fever. He denies any chills currently. He states he awoke in the middle of the night with worsening pain. Related Data Home Medications Medication Instructions Recorded Confirmed acetaminophen 650 mg PO DAILY PRN 02/20/13 08/16/21 famotidine 20 mg PO DAILY PRN tab-cap 02/20/13 08/16/21 loratadine 10 mg PO DAILY PRN 02/20/13 08/16/21 econazole 1 % topical cream 1 applic TOPICAL DAILY PRN #30 gm 10/02/19 08/16/21 ibuprofen 600 mg tablet 600 mg PO TID PRN #180 tab 01/10/21 08/16/21 triamcinolone acetonide 0.1 % 1 applic TOPICAL DAILY PRN #80 g 01/10/21 08/16/21 topical cream hydrochlorothiazide 25 mg tablet 25 mg PO DAILY #90 tab 01/31/21 08/16/21 lisinopril 20 mg tablet 20 mg PO DAILY #90 tab 05/24/21 08/16/21 lisdexamfetamine 60 mg capsule 60 mg PO DAILY #28 cap MDD 60mg 08/09/21 08/16/21 Previous Rx's Medication Instructions Recorded econazole 1 % topical cream 1 applic TOPICAL DAILY PRN #30 gm 10/02/19 ibuprofen 600 mg tablet 600 mg PO TID PRN #180 tab 01/10/21 triamcinolone acetonide 0.1 % 1 applic TOPICAL DAILY PRN #80 g 01/10/21 topical cream hydrochlorothiazide 25 mg tablet 25 mg PO DAILY #90 tab 01/31/21 lisinopril 20 mg tablet 20 mg PO DAILY #90 tab 05/24/21 lisdexamfetamine 60 mg capsule 60 mg PO DAILY #28 cap MDD 60mg 08/09/21 Allergies Allergy/AdvReac Type Severity Reaction Status Date / Time No Known Allergies Allergy Verified 08/16/21 16:16 General Stated Complaint: Vascular YENI: 3 Review of Systems <KESHAV Duque - Last Filed: 08/16/21 22:23> All systems reviewed & are unremarkable except as noted in HPI and below PFSH <KESHAV Duque - Last Filed: 08/16/21 22:23> Medical History (Updated 08/16/21 @ 19:48 by KESHAV Duque) 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 Anxiety Concentration deficit Depression Depressive disorder, not elsewhere classified (06/02/13) Difficulty processing information GERD (gastroesophageal reflux disease) HTN, goal to be determined Lower extremity edema Poor memory Varicose veins of both lower extremities Venous insufficiency Venous stasis dermatitis Surgical History (Updated 08/02/21 @ 16:44 by Darby Luciano RN) Colonoscopy - IV Sedation (05/14/15) Colonoscopy - MAC (05/03/18) H/O prior ablation treatment (07/05/21) right GSV ablation and stab [place]lebet[place] [facility] [place] Open Carpal Tunnel release right Tonsillectomy and adenoidectomy Family History Grandmother Personal history of malignant neoplasm colon cancer Mother COPD (chronic obstructive pulmonary disease) Father , age 66, cause: [place],Prostate cancer Prostate cancer Myocardial infarction Depression OCD (obsessive compulsive disorder) Sister Diabetes Uncle Lung cancer Paternal Grandfather Alcohol abuse Social History (Updated 01/01/20 @ 15:52 by Radha No LPN) Smoking/Tobacco Use Status: Former Tobacco Use Tobacco: How many years used: 10 Smoking risk assessment performed?: Yes Alcohol Intake: current Alcohol Intake frequency: holidays/special occasions only Alcohol type: beer and wine Drug use: Never Substance use type: does not use Household members: spouse Number of Children: 0 Communication Needs: None 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 Current gender identity: male What type of physical activity do you participate in: other Details: wood,shovel, snowshoe Seatbelt use: sometimes Working smoke detector in home: Yes Fire extinguisher in home: Yes Carbon monox detector in home: Yes Do you feel safe at home: Yes Do you feel safe in your relationship?: Yes Exam <KESHAV Duque - Last Filed: 08/16/21 22:23> Const General: cooperative and no acute distress Orientation: oriented x3 HENMT Mouth: oral mucosae normal Eyes Pupils: PERRL Chest Chest: normal inspection of the chest Resp Effort & Inspection: normal respiratory effort Cardio Rate: regular rate Rhythm: regular rhythm Skin Other: see note Neuro General: patient alert and patient oriented x3 Extrem Other: Right lower extremity with erythema, no crepitus, palpable lump to medial stab wound site, erythema extending up to the popliteal region, mild lymphangitis, no crepitus, no drainage, no wound dehiscence, 1+ edema right lower extremity, neurovascularly intact Course <KESHAV Duque - Last Filed: 08/16/21 22:23> Vital Signs Vital signs: Vital Signs Temperature 36.7 C 08/16/21 16:08 Pulse 86 08/16/21 16:08 Respiratory Rate 16 08/16/21 16:08 Blood Pressure 119/61 08/16/21 16:08 Pulse Oximetry 98 08/16/21 16:08 Temperature 38.2 C H 08/16/21 17:52 Temperature Source Oral 08/16/21 17:52 Pulse 89 08/16/21 18:31 Pulse 93 H 08/16/21 18:40 Respiratory Rate 22 08/16/21 18:40 Respiratory Effort Non-Labored 08/16/21 16:27 Respiratory Depth Normal 08/16/21 16:27 Respiratory Pattern Normal 08/16/21 16:27 Blood Pressure 143/70 H 08/16/21 18:31 Blood Pressure Mean 87 08/16/21 18:31 Blood Pressure Position Sitting 08/16/21 16:08 Pulse Oximetry 100 08/16/21 18:40 Oxygen Delivery Method Room Air 08/16/21 17:52 Oxygen Flow Rate 0 08/16/21 17:52 Pain Level 10 08/16/21 18:21 Lab/Test Results Lab/Test Results: 08/16/21 18:15 Blood Blood Culture - Pending 08/16/21 17:42 Blood Blood Culture - Pending Laboratory Tests Range/Units 08/16/21 08/16/21 08/16/21 17:07 17:07 17:42 WBC (4.4-10.8) 10^3/uL 26.75 H* RBC (4.36-5.78) 10^6/uL 4.29 L Hgb (13.5-17.5) g/dL 13.5 Hct (40.0-50.0) % 39.3 L MCV (80-95) fL 91.6 MCH (27.0-33.0) pg 31.5 MCHC (32.0-36.0) % 34.4 RDW (11.8-14.1) % 13.3 Plt Count (130-400) 10^3/uL 154 MPV (8.0-11.0) fL 10.8 Immature Gran % 1.4 Neutrophils % 88.4 Lymphocytes % 5.8 Monocytes % 4.3 Eosinophils % 0.0 Basophils % 0.1 Nucleated RBC % % 0 Absolute Neutrophils (1.2-6.7) 10^3/uL 23.65 H Absolute Lymphocytes (1.2-3.4) 10^3/uL 1.55 Absolute Monocytes (0.1-0.8) 10^3/uL 1.15 H Absolute Eosinophils (0.0-0.7) 10^3/uL 0.00 Absolute Basophils (0.0-0.2) 10^3/uL 0.03 RBC Morphology Normal VBG Lactate (0.6-1.4) mmol/L 1.7 H Sodium (136-145) mmol/L 137 Potassium (3.5-5.1) mmol/L 3.7 Chloride (98-107) mmol/L 100 Carbon Dioxide (21.0-32.0) mmol/L 29.0 Anion Gap (3-11) mmol/L 8.0 BUN (7-18) mg/dL 22 H Creatinine (0.70-1.30) mg/dL 1.3 Estimated GFR/1.73 m2 (mL/min/1.73m2) 56.50 Glucose (74-106) mg/dL 143 H Calcium (8.5-10.1) mg/dL 8.8 Total Bilirubin (0.2-1.0) mg/dL 1.4 H AST (15-37) U/L 15 ALT (16-63) U/L 22 Alkaline Phosphatase (46-116) U/L 80 C-Reactive Protein (0.0-0.3) mg/dL 4.41 H Total Protein (6.4-8.2) g/dL 6.5 Albumin (3.4-5.0) g/dL 3.7 Urine Color (Yellow) Urine Clarity (Clear) Urine pH (5-8) Ur Specific [place] (1.005-1.025) Urine Protein (Negative) mg/dL Urine Ketones (Negative) mg/dL Urine Blood (Negative) Urine Nitrite (Negative) Urine Bilirubin (Negative) Urine Urobilinogen (Up TO 0.2) EU/dL Ur Leukocyte Esterase (Negative) Urine Glucose (Negative) mg/dL Range/Units 08/16/21 17:50 WBC (4.4-10.8) 10^3/uL RBC (4.36-5.78) 10^6/uL Hgb (13.5-17.5) g/dL Hct (40.0-50.0) % MCV (80-95) fL MCH (27.0-33.0) pg MCHC (32.0-36.0) % RDW (11.8-14.1) % Plt Count (130-400) 10^3/uL MPV (8.0-11.0) fL Immature Gran % Neutrophils % Lymphocytes % Monocytes % Eosinophils % Basophils % Nucleated RBC % % Absolute Neutrophils (1.2-6.7) 10^3/uL Absolute Lymphocytes (1.2-3.4) 10^3/uL Absolute Monocytes (0.1-0.8) 10^3/uL Absolute Eosinophils (0.0-0.7) 10^3/uL Absolute Basophils (0.0-0.2) 10^3/uL RBC Morphology VBG Lactate (0.6-1.4) mmol/L Sodium (136-145) mmol/L Potassium (3.5-5.1) mmol/L Chloride (98-107) mmol/L Carbon Dioxide (21.0-32.0) mmol/L Anion Gap (3-11) mmol/L BUN (7-18) mg/dL Creatinine (0.70-1.30) mg/dL Estimated GFR/1.73 m2 (mL/min/1.73m2) Glucose (74-106) mg/dL Calcium (8.5-10.1) mg/dL Total Bilirubin (0.2-1.0) mg/dL AST (15-37) U/L ALT (16-63) U/L Alkaline Phosphatase (46-116) U/L C-Reactive Protein (0.0-0.3) mg/dL Total Protein (6.4-8.2) g/dL Albumin (3.4-5.0) g/dL Urine Color (Yellow) Yellow Urine Clarity (Clear) Clear Urine pH (5-8) 7.5 Ur Specific [place] (1.005-1.025) 1.015 Urine Protein (Negative) mg/dL Negative Urine Ketones (Negative) mg/dL Negative Urine Blood (Negative) Negative Urine Nitrite (Negative) Negative Urine Bilirubin (Negative) Negative Urine Urobilinogen (Up TO 0.2) EU/dL 0.2 Ur Leukocyte Esterase (Negative) Negative Urine Glucose (Negative) mg/dL Negative Critical Care Time <KESHAV Duque - Last Filed: 08/16/21 22:23> Critical Care Time Critical Care Time: Yes Total Critical Care Time: 45 Attestation: IV antibiotics, telemetry monitoring, IV fluid resuscitation, IV analgesia, transfer to [facility] in consultation with vascular surgery
[2021-08-16] MEDS: HYDROmorphone 2 MG/ML VIAL 1 MG IVP (19:50)
== END 2021-08-16 20:21 | disposition short-term general hospital (02) ==
PROVIDERS: Emergency Provider Physician Assistant; PCP Nurse Practitioner
DX: A41.9 Sepsis, unspecified organism (principal); L03.116 Cellulitis of left lower limb
CPT/HCPCS: 36415; 80053; 87040; 96361; 96365; 96366; 96368; 96375; 99291; 81003; 83605; 85025; 86140; J2543

== ENCOUNTER 2021-12-09 03:45 | Outpatient (CLI) | payer BC, SELFPAY ==
[2021-12-09 08:21] LABS: HCT 41.1 % (40.0-50.0); HGB 13.8 g/dL (13.5-17.5); MCH 30.5 pg (27.0-33.0); MCHC 33.6 % (32.0-36.0); MCV 90.9 fL (80-95); Platelet Count 172 10^3/uL (130-400); RBC 4.52 10^6/uL (4.36-5.78); RDW 13.2 % (11.8-14.1); RDW-SD 44.3 fL; WBC 6.06 10^3/uL (4.4-10.8)
[2021-12-09 09:35] LABS: ALT 26 U/L (16-63); AST 14 U/L (15-37); Albumin 3.6 g/dL (3.4-5.0); Alkaline Phosphatase 107 U/L (46-116); BUN 16 mg/dL (7-18); Bilirubin, Total 0.6 mg/dL (0.2-1.0); CREATININE 0.9 mg/dL (0.70-1.30); Calcium 8.8 mg/dL (8.5-10.1); Calculated LDL 46 mg/dL (<100); Chloride 105 mmol/L (98-107); Cholesterol 107 mg/dL (<200); Glucose 98 mg/dL (74-106); HDL Cholesterol 51 mg/dL (40-60); Potassium 3.7 mmol/L (3.5-5.1); Sodium 142 mmol/L (136-145); Total Protein 6.5 g/dL (6.4-8.2); Triglyceride 52 mg/dL (<150)
[2021-12-09 10:07] LABS: Hemoglobin A1C 5.7 % (<5.7)
[2021-12-09 18:03] LABS: PSA, Screening 1.5 ng/mL (0.0-3.5)
[2021-12-12 10:55] LABS: Hepatitis C Ab w Rflx HCV PCR Negative (Negative)
[2021-12-12 12:17] LABS: HIV-1/2 Ag & Ab Screen Negative (Negative)
== END 2021-12-09 03:46 | disposition home or self-care (01) ==
LOC: LBO 03:46
PROVIDERS: PCP Nurse Practitioner; Visit Provider Nurse Practitioner
DX: G47.33 Obstructive sleep apnea (adult) (pediatric) (principal); I10 Essential (primary) hypertension; Z83.3 Family history of diabetes mellitus; Z80.42 Family history of malignant neoplasm of prostate; Z11.4 Encounter for screening for human immunodeficiency virus [HIV]; Z11.59 Encounter for screening for other viral diseases; Z12.5 Encounter for screening for malignant neoplasm of prostate
CPT/HCPCS: 36415; 80053; 80061; 84153; 85027; 86803; 87389; 83036

== ENCOUNTER 2022-06-20 08:13 | Outpatient (CLI) | payer BC, SELFPAY ==
--- NOTE | 2022-06-20 08:00 | RT.EKG_ITS ---
APPROVED REPORT Exam: Resting ECG Reason for Exam: ADHD Medication Patient Location: O HR:63 bpm ECG Measurements Heart Rate 63 AXIS WA 182 P 84 QRSd 106 QRS 108 QT 579 T [id number] QTc 593 Conclusion Sinus rhythm...normal P axis, V- PVCs Right axis deviation...QRS axis ( 91,269) >500mS
== END 2022-06-20 08:14 | disposition home or self-care (01) ==
LOC: DI.KIM 08:16
PROVIDERS: PCP Nurse Practitioner; Visit Provider Nurse Practitioner
DX: Z51.81 Encounter for therapeutic drug level monitoring (principal)
CPT/HCPCS: 93010

== ENCOUNTER 2022-07-11 19:27 | Emergency (ER) | payer BC, SELFPAY ==
[2022-07-11 19:31] VITALS: BP 143/79; PULSE 75; RESP 18; TEMP 36.4; O2SAT 100
[2022-07-11 19:36] VITALS: RESP 18
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
[2022-07-11] MEDS: Cyclobenzaprine 10 MG TAB PO (21:01)
== END 2022-07-11 21:05 | disposition home or self-care (01) ==
PROVIDERS: Emergency Provider Emergency Medicine; PCP Family Medicine
DX: M79.605 Pain in left leg (principal); R60.0 Localized edema; Z87.891 Personal history of nicotine dependence
CPT/HCPCS: 99283; 99284

== ENCOUNTER 2022-10-09 10:16 | Emergency (ER) | payer OTHER, SELFPAY ==
[2022-10-09 10:19] VITALS: BP 160/85; PULSE 68; RESP 18; TEMP 36.8; O2SAT 99
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
[2022-10-09 11:28] VITALS: BP 144/103; PULSE 114; RESP 18; TEMP 35.8; O2SAT 99
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
== END 2022-10-09 12:09 | disposition home or self-care (01) ==
PROVIDERS: Emergency Provider Physician Assistant; PCP Family Medicine
DX: S61.432A Puncture wound without foreign body of left hand, initial encounter (principal); R20.2 Paresthesia of skin; W29.4XXA Contact with nail gun, initial encounter
CPT/HCPCS: 99283; 73130; 99284

== ENCOUNTER 2023-02-15 06:44 | Emergency (ER) | payer OTHER, SELFPAY ==
[2023-02-15 06:45] VITALS: BP 150/83; PULSE 79; RESP 18; TEMP 36.9; O2SAT 100
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
--- NOTE | 2023-02-15 07:38 | ED.GENADUL_ITS ---
Discharge Plan Disposition Patient Disposition: Home Condition: Good Discharge Details Clinical Impression: Puncture Primary Care Provider: Hammad Yusuf ED Provider: Rodolfo Wright Home Meds and New Rx's Prescriptions: No Action triamcinolone acetonide 0.1 % cream 1 applic Topical DAILY PRN (Reason: BLE rashes) Qty: 80 3RF Vyvanse 40 mg capsule 40 mg PO DAILY MDD 40 mg Qty: 28 0RF Patient Comments: 3 month supply Vyvanse 40 mg capsule 40 mg PO DAILY MDD 40 Qty: 28 0RF Patient Comments: 3 month supply lisdexamfetamine 40 mg capsule 40 mg PO DAILY MDD 40mg Qty: 28 0RF gabapentin 100 mg capsule 100 mg PO TID Qty: 90 3RF hydrochlorothiazide 25 mg tablet 25 mg PO DAILY Qty: 90 3RF acetaminophen 325 MG tablet 650 mg PO DAILY PRN loratadine 10 MG tablet 10 mg PO DAILY PRN famotidine 20 MG tablet 20 mg PO DAILY PRN elastic stockings 2 units Miscellaneous Qty: 2 1RF Rx Instructions: 1 pair knee high 20-30mm Jobst type ibuprofen 600 mg tablet 600 mg PO TID PRN (Reason: pain) Qty: 180 5RF lisinopril 20 mg tablet 20 mg PO DAILY Qty: 90 3RF econazole 1 % cream 1 applic Topical DAILY PRN (Reason: groin rash) Qty: 30 3RF atomoxetine 80 mg capsule 80 mg PO DAILY Qty: 90 1RF Discharge Instructions Instructions: Puncture Wound (ED) Additional Instructions: At this time there is no evidence of foreign body on the x-ray. Please take the antibiotic Keflex as directed to prevent any infection. Please keep the area bandaged for the next few days with a mild pressure dressing to prevent any bleeding. If bleeding does recur you can apply pressure for an extended amount of time or you can return here for reassessment. If you notice any worsening of your symptoms, or any new symptoms such as vomiting, diarrhea, fever, chills, shortness of breath, chest pain, numbness, weakness, or fainting , please return immediately to the emergency department for reevaluation. Please follow up with your primary care provider as soon as possible for reassessment and reevaluation. As always, it was a pleasure participating in your medical care today. Stand Alone Forms: Work Release Referrals: Hammad Yusuf DO [Primary Care Provider] - Discharge Data Discharge Date/Time-TO BE ENTERED AT DEPARTURE: 02/15/23 08:27 Medical Decision Making 63-year-old male with a past medical history of varicose veins, hypertension, GERD, presents today for evaluation of puncture to the left martin. Patient states that about an hour ago at work a wooden board hit the patient's martin. There was significant bleeding after that. EMS was called, and he was brought to the ER for further evaluation. It was wrapped by EMS. By the time he arrived the bleeding had stopped. He denies any significant pain. He does admit to a high risk of infection secondary to his chronic skin conditions and varicosities. He denies numbness or tingling otherwise. No other complaints at this time. Tetanus was updated in 2019. Exam demonstrates well-appearing male, puncture wound is not bleeding. Patient looks well. Tetanus is up-to-date. X-ray shows no clear evidence of foreign body or fracture. Out of an abundance of precaution we we will give Keflex from use to prevent infection. We will only do this for 5 days total. Bandage was placed over the area. Recommend close monitoring. Discussed red flags for which to return. I have extensively reviewed the treatment plan and discharge instructions with the patient and their family. I have addressed all patient concerns at this time. The patient and family was made aware of what symptoms to monitor for that would warrant a return to the emergency department. Discussed the plan with the patient and family, they demonstrate verbal understanding and agreement with our assessment and plan at this time. The documentation in this chart was dictated using [employer] dictation software. Please excuse any dictation errors. Patient has no evidence of foreign body. Bleeding did start again. If you layers of Dermabond were applied and he tolerated this well. Patient will be discharged home. We will give 5 days of Keflex. I have extensively reviewed the treatment plan and discharge instructions with the patient and their family. I have addressed all patient concerns at this time. The patient and family was made aware of what symptoms to monitor for that would warrant a return to the emergency department. Discussed the plan with the patient and family, they demonstrate verbal understanding and agreement with our assessment and plan at this time. The documentation in this chart was dictated using [employer] software. Please excuse any dictation errors. HPI General Date/Time Provider Initiated Documentation: 02/15/23 06:51 . HPI Narrative: 63-year-old male with a past medical history of varicose veins, hypertension, GERD, presents today for evaluation of puncture to the left martin. Patient states that about an hour ago at work a wooden board hit the patient's martin. There was significant bleeding after that. EMS was called, and he was brought to the ER for further evaluation. It was wrapped by EMS. By the time he arrived the bleeding had stopped. He denies any significant pain. He does admit to a high risk of infection secondary to his chronic skin conditions and varicosities. He denies numbness or tingling otherwise. No other complaints at this time. Tetanus was updated in 2019. Related Data Home Medications Medication Instructions Recorded Confirmed acetaminophen 325 mg tablet 650 mg PO DAILY PRN 02/20/13 02/15/23 famotidine 20 mg tablet 20 mg PO DAILY PRN 02/20/13 02/15/23 loratadine 10 mg tablet 10 mg PO DAILY PRN 02/20/13 02/15/23 triamcinolone acetonide 0.1 % 1 applic topical DAILY PRN BLE 01/10/21 02/15/23 topical cream rashes #80 grams ibuprofen 600 mg tablet 600 mg PO TID PRN pain #180 tabs 04/04/22 02/15/23 econazole 1 % topical cream 1 applic topical DAILY PRN groin 06/02/22 02/15/23 rash #30 grams lisinopril 20 mg tablet 20 mg PO DAILY #90 tabs 06/02/22 02/15/23 atomoxetine 80 mg capsule 80 mg PO DAILY #90 caps 12/29/22 02/15/23 gabapentin 100 mg capsule 100 mg PO TID #90 caps 02/12/23 02/15/23 hydrochlorothiazide 25 mg tablet 25 mg PO DAILY #90 tabs 02/12/23 02/15/23 lisdexamfetamine 40 mg capsule 40 mg PO DAILY #28 caps 02/12/23 02/15/23 lisdexamfetamine 40 mg capsule 40 mg PO DAILY #28 caps 02/12/23 02/12/23 (Vyvanse) lisdexamfetamine 40 mg capsule 40 mg PO DAILY #28 caps 02/12/23 02/12/23 (Vyvanse) Previous Rx's Medication Instructions Recorded triamcinolone acetonide 0.1 % 1 applic topical DAILY PRN BLE 01/10/21 topical cream rashes #80 grams ibuprofen 600 mg tablet 600 mg PO TID PRN pain #180 tabs 04/04/22 econazole 1 % topical cream 1 applic topical DAILY PRN groin 06/02/22 rash #30 grams lisinopril 20 mg tablet 20 mg PO DAILY #90 tabs 06/02/22 atomoxetine 80 mg capsule 80 mg PO DAILY #90 caps 12/29/22 gabapentin 100 mg capsule 100 mg PO TID #90 caps 02/12/23 hydrochlorothiazide 25 mg tablet 25 mg PO DAILY #90 tabs 02/12/23 lisdexamfetamine 40 mg capsule 40 mg PO DAILY #28 caps 02/12/23 lisdexamfetamine 40 mg capsule 40 mg PO DAILY #28 caps 02/12/23 (Vyvanse) lisdexamfetamine 40 mg capsule 40 mg PO DAILY #28 caps 02/12/23 (Vyvanse) Allergies Allergy/AdvReac Type Severity Reaction Status Date / Time No Known Allergies Allergy Verified 02/15/23 07:33 General Stated Complaint: Laceration YENI: 4 Review of Systems All systems reviewed & are unremarkable except as noted in HPI and below PFSH All Active Problems (Updated 02/15/23 @ 07:45 by Rodolfo Wright DO) Puncture (Acute) Wound healing, delayed (Acute) Obstructive sleep apnea (adult) (pediatric) (Acute 06/08/21) 06/13/22 [facility] for discussion of oral appliance Essential hypertension (Acute) Venous insufficiency (Acute) Lower extremity edema (Acute) Varicose veins of both lower extremities (Acute) Snoring (Acute) Obesity (Chronic) Tingling in extremities (Acute) Anxiety (Chronic) Depressive disorder, not elsewhere classified (Chronic 06/02/13) Irregular heart beat (Acute) SOB (shortness of breath) (Acute) Peripheral neuropathy (Acute) TBI (traumatic brain injury) (Acute) ADHD (attention deficit hyperactivity disorder), combined type (Acute) Plantar fasciitis, right (Acute) Gastroesophageal reflux disease (Acute 12/07/11) Erectile dysfunction (Acute 12/09/12) Diverticulosis of large intestine without hemorrhage (Acute 06/02/13) Benign paroxysmal vertigo (Acute 06/02/13) Adenoma of large intestine (Acute 07/04/12) SESSILE SERRATED ADENOMA: DR PORRAS DUE COLONOSCOPY 06/2015 Medical History 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 Depression GERD (gastroesophageal reflux disease) Surgical History Colonoscopy - IV Sedation (05/14/15) Colonoscopy - MAC (05/03/18) H/O prior ablation treatment (07/05/21) right GSV ablation and stab phlebetomy [facility] Vascular Open Carpal Tunnel release right Tonsillectomy and adenoidectomy Family History Grandmother Personal history of malignant neoplasm colon cancer Mother COPD (chronic obstructive pulmonary disease) Father , age 66, cause: [place],Prostate cancer Prostate cancer Myocardial infarction Depression OCD (obsessive compulsive disorder) Sister Diabetes Uncle Lung cancer Paternal Grandfather Alcohol abuse Social History Smoking/Tobacco Use Status: Former Tobacco Use Tobacco: How many years used: 10 Smoking risk assessment performed?: Yes Alcohol Intake: current Alcohol Intake frequency: holidays/special occasions only Alcohol type: beer and wine Drug use: Never Substance use type: does not use Household members: spouse Number of Children: 0 Communication Needs: None 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 3.ENT: Atraumatic external nose and ears. Moist MM. Neck: Symmetric, trachea midline, No thyromegaly. 4.CVS: +S1/S2, No murmurs or gallops. Peripheral pulses 2+ and equal in all extremities. Brisk capillary refill in all extremities. 5.RESP: Unlabored respiratory effort. Clear to auscultation bilaterally. No wheezes rales or rhonchi 6.GI: Soft, Nontender/Nondistended, No hepatosplenomegaly. No guarding or rebound. 7.MSK: Left martin demonstrates a small puncture wound that is no longer bleeding on the anterior left martin. No evidence of foreign body. No significant tenderness. No bruising. 8.Skin: Small puncture wound roughly 3 to 4 mm in diameter. No active bleeding. 9.Neuro: policy advisor II-XII grossly intact. Sensation grossly intact, no focal neurolog ic deficits. 10.Psych: (AAO) x3. Appropriate mood and affect Course Vital Signs Vital signs: Vital Signs Temperature 36.9 C 02/15/23 06:45 Pulse 79 02/15/23 06:45 Respiratory Rate 18 02/15/23 06:45 Blood Pressure 150/83 H 02/15/23 06:45 Pulse Oximetry 100 02/15/23 06:45 Temperature 36.9 C 02/15/23 06:45 Temperature Source Oral 02/15/23 06:45 Pulse 79 02/15/23 06:45 Respiratory Rate 18 02/15/23 06:45 Respiratory Effort Normal 02/15/23 06:50 Blood Pressure 150/83 H 02/15/23 06:45 Blood Pressure Position Supine 02/15/23 06:45 Pulse Oximetry 100 02/15/23 06:45 Oxygen Delivery Method Room Air 02/15/23 06:45 Oxygen Flow Rate 0 02/15/23 06:45
[2023-02-15] MEDS: Cephalexin 500 MG CAP, 4 CAPS/BTL PO (07:54)
--- NOTE | 2023-02-15 08:14 | DI.VRAD_ITS ---
PROCEDURE INFORMATION: Exam: XR Left Tibia and Fibula Exam date and time: 02/15/2023 7:22 AM Age: 63 years old Clinical indication: Injury or trauma; Other: Stabbed with piece of wood; Puncture; Lower leg; Foreign body involvement not specified; Patient HX: Stabbed with a piece of wood in left martin. TECHNIQUE: Imaging protocol: Radiologic exam of the left tibia and fibula. Views: 2 views. COMPARISON: No relevant prior studies are available for comparison. FINDINGS: Bones/joints: No fracture seen. Soft tissues: Bandaging/dressing somewhat limits evaluation. No definite radiodense foreign body identified in the reported location of trauma. Small density anterior to the distal 3rd of the tibia likely represents phlebolith. Densities projecting inferior to the calcaneus are most likely calcific in nature. Foreign bodies cannot be definitively excluded but this is reportedly not the site of trauma. Clinical correlation advised. Other findings: Multiple rounded densities projecting over the lower extremity, likely external to the patient such as bandaging or ice. Please correlate clinically. IMPRESSION: 1. No definite foreign body identified. 2. Findings as above. Dictated and Authenticated by: Sveta Sellers MD. Ordering:DOREEN Reynolds MD
== END 2023-02-15 08:27 | disposition home or self-care (01) ==
PROVIDERS: Emergency Provider Student in an Organized Health Care Education/Training Program; PCP Family Medicine
DX: S81.832A Puncture wound without foreign body, left lower leg, initial encounter (principal); I10 Essential (primary) hypertension; Y99.0 Civilian activity done for income or pay; W22.09XA Striking against other stationary object, initial encounter
CPT/HCPCS: 99283; 73590; 99284

== ENCOUNTER 2023-04-11 15:33 | Outpatient (CLI) | payer BC, SELFPAY ==
--- NOTE | 2023-04-11 14:30 | DI.RAD_ITS ---
Exam(s) XR SHOULDER LT COMPLETE 2+V EXAM: XR SHOULDER LT COMPLETE 2+V CLINICAL HISTORY: left shoulder pain. TECHNIQUE: 2D digital imaging was performed of the left shoulder. Two images were obtained. AP and axillary views were obtained. COMPARISON: No exams were available for comparison FINDINGS: BONES: No acute fracture is present. No bony destructive lesion is seen. JOINTS: No dislocation present. Degenerative changes are seen at the glenohumeral joint with un osteo phyte seen at the inferior humeral head. The acromioclavicular joint is well maintained. SOFT TISSUE: Normal. IMPRESSION: Degenerative changes are seen at the glenohumeral joint. DATA REPOSITORY: RADIATION DOSE DELIVERED:
== END 2023-04-11 15:34 | disposition home or self-care (01) ==
LOC: DIORS 15:34
PROVIDERS: PCP Family Medicine; Referring Provider Family Medicine; Visit Provider Student in an Organized Health Care Education/Training Program
DX: M19.012 Primary osteoarthritis, left shoulder
CPT/HCPCS: 73030

== ENCOUNTER 2023-05-04 01:05 | Outpatient (CLI) | payer BC, SELFPAY ==
--- NOTE | 2023-05-04 08:15 | DI.MRI_ITS ---
Exam(s) MR UPPER JOINT LT WO EXAM: MR UPPER JOINT LT WO CLINICAL HISTORY: L SHOULDER PAIN.LT ROTATOR CUFF TEAR,M75.102 TECHNIQUE: Multiplanar multisequence MRI of the shoulder was performed. COMPARISON: CR XR SHOULDER LT COMPLETE 2+V from 04/11/2023 FINDINGS: MARROW:There is no evidence of fracture, Hill-Sachs deformity, bony Bankart lesion, nor ominous osseo us lesions. ROTATOR CUFF MECHANISM: AC JOINT/ACROMIUM: There are moderate degenerative changes in the AC joint.. There is no evidence of os acromiale. Supraspinatus: There is signal increase within the supraspinatus tendon consistent with tendinitis/te ndinosis. No obvious full-thickness tear. No retraction. No muscle atrophy. Infraspinatus: Focus of signal abnormality appears to be consistent with partial thickness articular side surface tear. No retraction of the musculotendinous junction. No atrophy. Teres Minor: Intact. No evidence of tear nor muscle atrophy. Subscapularis/anterior cuff: No significant tear nor atrophy. BICEPS TENDON: Exhibits some thinning within the intertubercular groove. There appears to be subtle s plit tearing of the biceps tendon. No tenosynovitis LABRUM: Superior labrum appears intact. Labrum in exhibits some increased signal posterior inferiorl y. 6 millimeter paralabral cyst seen posteriorly inferiorly. Some tearing of the anterior labrum supe riorly noted. Inferior glenohumeral ligament appears intact GLENOHUMERAL JOINT: No joint effusion or obvious loose intra-articular bodies. Small osteophyte is s een on the inferior articular surface of the humeral head. No degenerative subarticular cysts eviden t. Mild multilevel cartilage loss. QUADRILATERAL SPACE: No evidence of mass in the region of the axillary nerve and dorsal circumflex hu meral vessels. Visualized triceps muscle at this level appears unremarkable. IMPRESSION: 1. Tendinitis signal within the supraspinatus but no high-grade tear. 2. Partial-thickness tear of the infraspinatus tendon. No atrophy. 3. Anterior and posterior labral tears. Small paralabral cysts seen posterior inferiorly. 4. Mild longitudinal split tearing of the biceps tendon evident. 5. Mild degenerative changes in the glenohumeral joint. No loose intra-articular bodies. 6. Degenerative changes in the AC joint. DATA REPOSITORY:
--- NOTE | 2023-05-04 19:01 | DI.VRAD_ITS ---
PROCEDURE INFORMATION: Exam: MR Left Upper Extremity Joint Without Contrast; Shoulder Exam date and time: 05/04/2023 2:47 PM Age: 63 years old Clinical indication: Other: L shoulder pain. Lt rotator cuff tear TECHNIQUE: Imaging protocol: Magnetic resonance imaging of the left upper extremity without contrast. Exam focused on the shoulder. COMPARISON: CR XR SHOULDER LT COMPLETE 2+V 04/11/2023 2:46 PM FINDINGS: Bones/joints: [id number] osteoarthritic changes within the acromioclavicular joint. Small undersurface osteophytes are seen along the acromioclavicular joint which may contribute to impingement. A small broad-based enthesophyte is seen along the undersurface of the acromion, which may also contribute to impingement. Tiny glenohumeral joint effusion. Mild osteoarthritic changes within the glenohumeral joint with [id number] cartilage thinning throughout the glenohumeral joint with superimposed full-thickness cartilage loss overlying the superior humeral head and superior and central glenoid. Glenoid labrum: Diffuse, circumferential labral tearing, with several paralabral cyst extending off the posterior and posterior-inferior labrum measuring up to 7 mm. Bursae: Trace subacromial-subdeltoid bursitis. Supraspinatus tendon: Mild to moderate supraspinatus tendinosis. Mild articular-sided fraying without evidence for a tendon tear. Infraspinatus tendon: A delaminating, near full-thickness tear is seen within the distal footplate of the infraspinatus tendon with minimal, approximately 1-2 mm, tendon retraction. This is superimposed on mild tendinosis. The tear measures 8 mm in AP dimension, and extends to the junction with the teres minor tendon. Subscapularis tendon: A low-grade partial-thickness tear is seen within the deep fibers of the distal subscapularis tendon, superimposed on mild tendinosis. Teres minor tendon: Mild tendinosis within the distal teres minor tendon. Tendon of biceps brachii: A low-grade longitudinal split tear is seen within the intra-articular portion of the long head of the biceps tendon, with the tear extending into the proximal bicipital groove. This is superimposed on mild tendinosis and tenosynovitis. Glenohumeral ligaments: The superior glenohumeral ligament is degenerated and frayed. The middle glenohumeral ligament is degenerated and frayed. Mild thickening of the anterior posterior bands of the inferior glenohumeral ligament. Soft tissues: No focal fluid collection or hematoma. No significant fatty atrophy of the rotator cuff muscles. IMPRESSION: 1. Delaminating, near full-thickness tear within distal infraspinatus tendon. 2. Low-grade partial-thickness tear within the distal subscapularis tendon. 3. Diffuse, circumferential labral tearing with several small paralabral cyst. 4. [id number] acromioclavicular osteoarthritis, with a small broad-based undersurface acromial enthesophyte. These findings may contribute to impingement. 5. Low-grade longitudinal split tear within the long head of the biceps tendon. Dictated and Authenticated by: Temitope Coe MD. Ordering:NATHANIEL Pillai MD
== END 2023-05-04 01:25 ==
LOC: DI 01:06
PROVIDERS: PCP Family Medicine; Visit Provider Student in an Organized Health Care Education/Training Program
DX: M19.012 Primary osteoarthritis, left shoulder (principal); M75.112 Incomplete rotator cuff tear or rupture of left shoulder, not specified as traumatic; S43.431A Superior glenoid labrum lesion of right shoulder, initial encounter; S46.211A Strain of muscle, fascia and tendon of other parts of biceps, right arm, initial encounter; X58.XXXA Exposure to other specified factors, initial encounter
CPT/HCPCS: 73221

== ENCOUNTER 2023-05-07 15:44 | Outpatient (CLI) | payer BC, SELFPAY ==
--- NOTE | 2023-05-07 15:30 | RT.EKG_ITS ---
APPROVED REPORT Exam: Resting ECG Reason for Exam: Medication management Patient Location: O HR:51 bpm ECG Measurements Heart Rate 51 AXIS VT 164 P 41 QRSd 117 QRS 43 QT 390 T 17 QTc 360 Conclusion Sinus rhythm...normal P axis, V-rate 50- 99 Normal Electrocardiogram Baseline wander in lead(s) V3
== END 2023-05-07 15:45 | disposition home or self-care (01) ==
LOC: DI.KIM 15:46
PROVIDERS: PCP Family Medicine; Visit Provider Family Medicine
DX: Z79.899 Other long term (current) drug therapy (principal)
CPT/HCPCS: 93010

== ENCOUNTER 2023-05-21 06:07 | Day surgery (SDC) | payer BC, SELFPAY ==
--- NOTE | 2023-05-20 18:21 | W.ANESPRE ---
General Info Date of Service Date Performed: 05/21/23 Height: 6 ft 1 in Weight: 105.233 kg Body Mass Index (BMI): 30.6 Surgical Procedure: Operation Date: 05/21/23 07:35 Proposed Procedure Side Surgeon wilmar Hatfield MD Meds Allergies and Home Medications Allergies Allergy/AdvReac Type Severity Reaction Status Date / Time No Known Allergies Allergy Verified 05/21/23 06:31 Home Medication Medication Instructions Recorded acetaminophen 325 mg tablet 650 mg PO DAILY PRN 02/20/13 famotidine 20 mg tablet 20 mg PO DAILY PRN 02/20/13 loratadine 10 mg tablet 10 mg PO DAILY PRN 02/20/13 triamcinolone acetonide 0.1 % 1 applic topical DAILY PRN BLE 01/10/21 topical cream rashes #80 grams ibuprofen 600 mg tablet 600 mg PO TID PRN pain #180 tabs 04/04/22 econazole 1 % topical cream 1 applic topical DAILY PRN groin 06/02/22 rash #30 grams lisinopril 20 mg tablet 20 mg PO DAILY #90 tabs 06/02/22 hydrochlorothiazide 25 mg tablet 25 mg PO DAILY #90 tabs 02/12/23 gabapentin 300 mg capsule 300 mg PO TID #270 caps 03/09/23 lisdexamfetamine 40 mg capsule 40 mg PO DAILY #28 caps 05/07/23 (Vyvanse) Current Visit Medications: Current Medications Generic Name Dose Route Start Last Admin Trade Name Freq PRN Reason Stop Dose Admin Ringer's Solution 1,000 mls @ 80 mls/hr 05/21/23 06:00 IV 05/21/23 23:59 INFUSION MEKHI IV Miscellaneous Supplies 1 each 05/21/23 06:00 Iv Access IV 05/21/23 23:59 DIRECTED MEKHI Sodium Chloride 0 ml 05/21/23 06:00 Normal Saline Flush 10 Ml Syr IV 05/21/23 23:59 PRN PRN Sodium Chloride 0 ml 05/21/23 06:00 Normal Saline 10 Ml Vial IJ 05/21/23 23:59 DIRECTED PRN Sterile Water 0 ml 05/21/23 06:00 Water,Injection,Sterile 10 Ml Vial IJ 05/21/23 23:59 DIRECTED PRN PFSH Active Problems Active Problems: Problem Status Onset Code Adenoma of large intestine 07/04/12 D12.6 Benign paroxysmal vertigo 06/02/13 H81.10 Depressive disorder, not elsewhere classified 06/02/13 F32.9 Diverticulosis of large intestine without hemorrhage 06/02/13 K57.30 Erectile dysfunction 12/09/12 N52.9 Gastroesophageal reflux disease 12/07/11 K21.9 Plantar fasciitis, right M72.2 ADHD (attention deficit hyperactivity disorder), combined type F90.2 TBI (traumatic brain injury) S06.9X9A Peripheral neuropathy G62.9 SOB (shortness of breath) R06.02 Irregular heart beat I49.9 Anxiety F41.9 Tingling in extremities R20.2 Obesity E66.9 Snoring R06.83 Varicose veins of both lower extremities I83.93 Lower extremity edema R60.0 Venous insufficiency I87.2 Essential hypertension I10 Obstructive sleep apnea (adult) (pediatric) 06/08/21 G47.33 Wound healing, delayed T14.8XXD Arthritis of left glenohumeral joint M19.012 Left rotator cuff tear M75.102 Tendinitis of long head of biceps brachii of left shoulder M75.22 Medical History Medical History (Updated 05/21/23 @ 06:37 by Francie Everett) 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 fell hit his head as a kid, no hx of seizures, never had any real cognitive deficets Surgical History Surgical History Colonoscopy - IV Sedation (05/14/15) Colonoscopy - MAC (05/03/18) H/O prior ablation treatment (07/05/21) right GSV ablation and stab phlebetomy [facility] [place] Vascular (varicose veins in leg) Open Carpal Tunnel release right, left Tonsillectomy and adenoidectomy Tobacco Smoking/Tobacco Use Status: Former Tobacco Use Alcohol Alcohol Intake: current Alcohol intake frequency: holidays/special occasions only Alcohol type: beer and wine Substance Use Substance use: Never Substance use type: does not use Vital Signs and Lab Results Vital Signs Most Recent Vital Signs in EMR: Temp Pulse Resp BP Pulse Ox 36.6 C 56 L 18 128/77 100 05/21/23 06:27 05/21/23 06:27 05/21/23 06:27 05/21/23 06:27 05/21/23 06:27 Lab Results Blood Type / Crossmatch: No Data to Display Complete Blood Count: No Data to Display Complete Metabolic Panel: No Data to Display Liver Function Panel: No Data to Display Coagulation Panel: No Data to Display Cardiac Panel: No Data to Display Arterial Blood Gas: No Data to Display Venous Blood Gas: No Data to Display Pancreas Panel: No Data to Display Thyroid Panel: No Data to Display Infectious Disease: No Data to Display Blood Cultures: No Data to Display Toxicology Panel: No Data to Display Imaging and Studies Imaging and Studies Study information below may be from another EMR and interpreted by another provider. Please see original notes in EMR for more complete details. EKG Summary: 05/13: sinus. Stress Test Summary: 10/09: 11 METS, no evidence of ischemia. Echocardiogram Summary: 10/09: LVH borderline, LVEF 60-65%. trace AR, trace MR, mild TR. RVSP 33 mmhg. Anesthesia Assessment and Plan Anesthesia History Personal History: No History of Anesthesia Complications Family History: No Family History of Anesthesia Complications Exercise Tolerance Exercise Tolerance: Metabolic Equivalents>4 Cardiac & Pulmonary Exam Cardiac Exam: Normal S1/S2 Heart Sounds Pulmonary Exam: Clear Bilateral Breath Sounds Implantable Cardiac Device Does patient have a Pacemaker or an ICD?: No Airway Exam Known Difficult Airway: No Mallampati Class: 3 Mouth Opening: Normal (> 3cm) Thyromental Distance: Greater than 3 cm Neck Range of Motion: Full ROM Neck Circumference: Normal Teeth Condition: Normal Dentition ASA Classification ASA Score: ASA 2 Emergency Case?: No NPO Status NPO Status: NPO Clears >2 hours, Solids >8 hours Anesthesia Plan Resuscitation Status: Full Code Anesthesia Technique: General Anesthesia Airway Planned: Natural Airway Monitors Used: Standard Monitors Preoperative Comments:: 63 yo male for colo. Sig PMHx: anxiety, depression, adhd, JAVON, GERD (diet controlled), TBI as child. former smoker, occ EtOH. Previous Anes: - colo, fent/midaz, prop, natural airway, no issues.
--- NOTE | 2023-05-20 19:46 | HPE_ITS ---
Assessment and Plan Assessment and plan (1) Screen for colon cancer: Status: Acute Assessment and plan: We reviewed the risks and benefits of screening colonoscopy and its role as part of routine health maintenance. He provided informed consent and wishes to preoceed. History of Present Illness History of Present Illness Chief Complaint: Screening colonscopy Narrative: 63 y/o male with history of HTN, Anxiety, JAVON, HTN, TBI and GERD presents for colonoscopy screening pre-op. His last screening was in 2018, which was sigmoid diverticulitis.? Colonoscopy from 2014 was remarkable for sessile serrated adenoma.? He reports a family history of colon cancer in his maternal grandmother.? She describes having more frequent constipation and following bowel movements has noted bright red blood on the toilet paper.? This is intermittently associated with belly pain and left lower quadrant discomfort.? He also describes having intermittent heartburn despite his famotidine use.? He denies any black tarry stools. He denies constitutional symptoms. Patient describes having intermittent palpitations and fluttering of his heart.? He states that he is also noted intermittent dizziness with activity and often when he stands up too quickly.? He denies chest pain,? dyspnea or dyspnea with exertion. He denies prior history or family history of adverse reactions or complications with anesthesia. The patient denies any history of stroke, MA, seizures, bleeding or clotting disorders. He denies having any implanted metal in his body. [facility] All Active Problems Adenoma of large intestine (Acute 07/04/12) SESSILE SERRATED ADENOMA: DR PORARS DUE COLONOSCOPY 06/2015 Benign paroxysmal vertigo (Acute 06/02/13) Depressive disorder, not elsewhere classified (Chronic 06/02/13) Diverticulosis of large intestine without hemorrhage (Acute 06/02/13) Erectile dysfunction (Acute 12/09/12) Gastroesophageal reflux disease (Acute 12/07/11) Plantar fasciitis, right (Acute) ADHD (attention deficit hyperactivity disorder), combined type (Acute) TBI (traumatic brain injury) (Acute) Peripheral neuropathy (Acute) SOB (shortness of breath) (Acute) Irregular heart beat (Acute) Anxiety (Chronic) Tingling in extremities (Acute) Obesity (Chronic) Snoring (Acute) Varicose veins of both lower extremities (Acute) Lower extremity edema (Acute) Venous insufficiency (Acute) Essential hypertension (Acute) Obstructive sleep apnea (adult) (pediatric) (Acute 06/08/21) 06/13/22 [facility] for discussion of oral appliance Wound healing, delayed (Acute) Arthritis of left glenohumeral joint (Acute) Left rotator cuff tear (Acute) Tendinitis of long head of biceps brachii of left shoulder (Acute) Screen for colon cancer (Acute) Medical History 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 fell hit his head as a kid, no hx of seizures, never had any real cognitive deficets Surgical History Colonoscopy - IV Sedation (05/14/15) Colonoscopy - MAC (05/03/18) H/O prior ablation treatment (07/05/21) right GSV ablation and stab phlebetomy [facility] [place] Vascular (varicose veins in leg) Open Carpal Tunnel release right, left Tonsillectomy and adenoidectomy Family History Grandmother Personal history of malignant neoplasm colon cancer Mother COPD (chronic obstructive pulmonary disease) Father , age 66, cause: MA,Prostate cancer Prostate cancer Myocardial infarction Depression OCD (obsessive compulsive disorder) Sister Diabetes Uncle Lung cancer Paternal Grandfather Alcohol abuse Social History Smoking/Tobacco Use Status: Former Tobacco Use Quit Date: 10/22/89 Tobacco: How many years used: 10 Smoking risk assessment performed?: Yes Alcohol Intake: current Alcohol Intake frequency: holidays/special occasions only Alcohol type: beer and wine Drug use: Never Substance use type: does not use Details: alcohol: months Household members: spouse Housing: house Number of Children: 0 Communication Needs: None 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 Current gender identity: male What type of physical activity do you participate in: other Details: wood,shovel, snowshoe Seatbelt use: sometimes Working smoke detector in home: Yes Fire extinguisher in home: Yes Carbon monox detector in home: Yes Do you feel safe at home: Yes Do you feel safe in your relationship?: Yes Meds Allergies and Home Medications Allergies Allergy/AdvReac Type Severity Reaction Status Date / Time No Known Allergies Allergy Verified 05/21/23 06:31 Home Medications Medication Instructions Recorded Confirmed Type acetaminophen 325 mg tablet 650 mg PO DAILY PRN 02/20/13 05/21/23 History famotidine 20 mg tablet 20 mg PO DAILY PRN 02/20/13 05/21/23 History loratadine 10 mg tablet 10 mg PO DAILY PRN 02/20/13 05/21/23 History Elastic Stockings 2 units miscellaneous #2 multiple 11/29/16 01/01/19 Clinic units triamcinolone acetonide 0.1 % 1 applic topical DAILY PRN BLE 01/10/21 05/21/23 Rx topical cream rashes #80 grams ibuprofen 600 mg tablet 600 mg PO TID PRN pain #180 tabs 04/04/22 05/21/23 Rx econazole 1 % topical cream 1 applic topical DAILY PRN groin 06/02/22 05/21/23 Rx rash #30 grams lisinopril 20 mg tablet 20 mg PO DAILY #90 tabs 06/02/22 05/21/23 Rx hydrochlorothiazide 25 mg tablet 25 mg PO DAILY #90 tabs 02/12/23 05/21/23 Rx gabapentin 300 mg capsule 300 mg PO TID #270 caps 03/09/23 05/21/23 Rx lisdexamfetamine 40 mg capsule 40 mg PO DAILY #28 caps 05/07/23 05/21/23 Rx (Vyvanse) Exam Const General: cooperative, healthy appearing and comfortable Orientation: awake and oriented x3 Eyes General: appearance normal, both eyes and all related structures Conjunctivae: conjunctivae normal Sclera: sclerae normal Resp Effort & Inspection: normal respiratory effort and able to speak in complete sentences Auscultation: clear to auscultation bilaterally Cardio Jugular venous pressure: no JVD Rate: regular rate Rhythm: regular rhythm Heart Sounds: S1 normal and S2 normal GI Inspection: non-distended Palpation: soft, no guarding, no hernias and nontender Auscultation: normal bowel sounds Skin General skin exam: normal turgor Neuro General: patient alert, patient awake and patient oriented x3 Cognition: normal cognition Extrem Right lower extremity: no edema Left lower extremity: no edema
--- NOTE | 2023-05-20 19:48 | W.PM.DSUDISC ---
Date of service: 05/21/23 Time of Service: 07:53 Discharge Plan Disposition Patient Disposition: Home Condition: Good Discharge Details Reason For Visit: Screening colonoscopy Attending Provider: Soto Hatfield Primary Care Provider: Hammad Ysuuf Home Meds and New Rx's Prescriptions: Continued triamcinolone acetonide 0.1 % cream 1 applic Topical DAILY PRN (Reason: BLE rashes) Qty: 80 3RF hydrochlorothiazide 25 mg tablet 25 mg PO DAILY Qty: 90 3RF Vyvanse 40 mg capsule 40 mg PO DAILY MDD 40 mg Qty: 28 0RF acetaminophen 325 MG tablet 650 mg PO DAILY PRN loratadine 10 MG tablet 10 mg PO DAILY PRN famotidine 20 MG tablet 20 mg PO DAILY PRN elastic stockings 2 units Miscellaneous Qty: 2 1RF Patient Comments: pt. states he never filled prescription Rx Instructions: 1 pair knee high 20-30mm Jobst type ibuprofen 600 mg tablet 600 mg PO TID PRN (Reason: pain) Qty: 180 5RF lisinopril 20 mg tablet 20 mg PO DAILY Qty: 90 3RF econazole 1 % cream 1 applic Topical DAILY PRN (Reason: groin rash) Qty: 30 3RF gabapentin 300 mg capsule 300 mg PO TID Qty: 270 3RF Discontinued bisacodyl [Dulcolax (bisacodyl)] 5 mg tablet,delayed release (DR/EC) 5 mg PO ONCE Qty: 4 0RF Rx Instructions: Take per colonoscopy instructions provided by ordering providers office polyethylene glycol 3350 17 gram/dose powder 17 g PO ONCE Qty: 238 0RF Rx Instructions: Take per colonoscopy instructions provided by ordering providers office Discharge Instructions Instructions: Diverticulosis (GEN), Diverticulosis Diet (GEN), Hemorrhoids (GEN) Additional Instructions: Kiya, we were able to complete your colonoscopy today without any problems. The quality of your prep was excellent. Like we talked about before the procedure, you do have some very mild internal hemorrhoids. I do not think these require any specific treatment. You also have some diverticulosis. These are small weak spots in the colon wall. They were noted on your previous colonoscopy. The best way to take care of diverticulosis (as well as internal hemorrhoids) is to maintain a well-balanced diet that is rich in dietary fibers, staying well-hydrated, and trying to avoid prolonged periods of sitting on the toilet. I did not see any polyps along the length of your large intestine. Based on the type of polyps that you had removed previously (sessile serrated adenomas), and the negative colonoscopy today, I recommend your next colonoscopy in 5 years. 1. If tolerated, consume a soft, low fiber diet for 1-2 days. 2[address] Do not drive, drink alcohol, operate machinery, make critical decisions, or do activities that require coordination or balance for 24 hours. 3. Because air was put into your colon during the procedure, expelling air from your rectum (passing gas or farting) is normal. 4. You may not have a bowel movement for 1-3 days because of the colonoscopy prep. This is normal. 5. Go directly to the emergency room if you notice any of the following: Develop chills (warm to touch), or if you have a thermometer and your temperature is above 101 Difficulty breathing or difficultly swallowing Persistent vomiting Severe abdominal pain, other than gas cramps Severe chest pain Black, tarry stools Any bleeding ? exceeding one tablespoon 6. Call your physician if the site where your intravenous was started becomes red, swollen, painful, and warm to touch. 7. Your physician has reviewed your pre-procedure medications. Please continue to take those medications as previously ordered. You will be given specific information/education regarding any changes to your medications before leaving. Activity:: Activity as Tolerated Diet:: As Tolerated Discharge Orders Discharge Orders: Discharge Order (Routine); Ordered 05/20/23 Ordered By: Soto Hatfield DS: Diagnosis Discharge Diagnosis (1) Screen for colon cancer: Status: Acute
--- NOTE | 2023-05-20 19:49 | W.COLOREPORT ---
Date of service: 05/21/23 Time of Service: 07:56 Colonoscopy Report Date of procedure: 05/21/23 Pre-op diagnosis general: Screening colonoscopy Procedure: Colonoscopy Surgeon: Soto Hatfield Anesthesia Type: General:No Airway Estimated blood loss (mL): 0 Pathology: none sent Complications: None Disposition: same day Indications: Peter is a 63 year old man who needs his next screening colonoscopy Prep: Miralax/Dulcolax Procedure Start Time: :31 Procedure End Time: 07:42 Retraction Time: 6 Findings: Sigmoid diverticulosis, internal hemorrhoid Procedure Description: After the induction of monitored anesthetic care, and with the patient in left lateral decubitus position, I began by performing an external anorectal exam.? Perineum and skin were normal, as was the anal verge.? There was no evidence of external hemorrhoids.? Next, I performed a digital rectal exam.? I did not appreciate any abnormal findings.? Next, I advanced a colonoscope into the rectal vault.? I performed retroflexion.? There is grade 1 internal hemorrhoids.? Using insufflation, I then advanced the colonoscope beyond the rectal folds and into the sigmoid colon before advancing towards the cecum.? The quality of the prep was excellent.? There was moderate sigmoid diverticulosis the scope was noted to be in the cecum by identification of the ileocecal valve and appendiceal orifice.? I then began withdrawing the colonoscope using repeated irrigation as necessary for full evaluation of the colonic mucosa. ?Once the scope was withdrawn to the level of the rectum, great care was taken to examine portions of the rectal folds.? Finally, the scope was withdrawn and the patient was brought to the same-day surgery recovery unit as the anesthetic wore off. ?I did not see any evidence of polyps or tumors anywhere along the large intestine. The findings and instructions were shared with the patient prior to discharge.
[2023-05-21 06:27] VITALS: BP 128/77; PULSE 56; RESP 18; TEMP 36.6; O2SAT 100
[2023-05-21] MEDS: Lactated Ringers 1,000 ML 80 ML IV (06:40)
[2023-05-21 06:53] VITALS: BMI 30.6
[2023-05-21 07:47] VITALS: BP 108/73; PULSE 58; RESP 17; TEMP 36.5; O2SAT 97
--- NOTE | 2023-05-21 08:19 | W.ANESPOSTOP ---
Postoperative Evaluation Date, Time and Location Date Performed: 05/21/23 Time Performed: 08:00 Patient Location: Day Surgery Unit Vital Signs Most Recent Imported Vital Signs: Most Recent Vital Signs Temp Pulse Resp BP Pulse Ox 36.5 C 58 L 17 108/73 97 05/21/23 07:47 05/21/23 07:47 05/21/23 07:47 05/21/23 07:47 05/21/23 07:47 Pain Score Most Recent Pain Score: Most Recent Pain Score Pain Level 0 05/21/23 07:47 Assessment Mental Status: Awake (Alert & Oriented to Patient Baseline) Airway and Respiratory Function: Patent airway with normal (patient baseline) respiratory exam Cardiovascular Function: Hemodynamically Stable Hydration Status: Adequately Hydrated Nausea & Vomiting: No Nausea or Vomiting Pain: Pt. Denies Any Pain Peripheral Nerve Block: Patient did not receive a nerve block
[2023-05-21 08:20] VITALS: BP 126/79; PULSE 49; RESP 16; TEMP 36.5; O2SAT 99
== END 2023-05-21 08:34 | disposition home or self-care (01) ==
PROVIDERS: PCP Family Medicine; Visit Provider Surgery
PROC: 0DJD8ZZ Inspection of Lower Intestinal Tract, Via Natural or Artificial Opening Endoscopic (ICD-10-PCS; CPT 45378; principal; 2023-05-21 07:30)
DX: Z12.11 Encounter for screening for malignant neoplasm of colon (principal); Z86.010 Personal history of colon polyps; I10 Essential (primary) hypertension; G47.33 Obstructive sleep apnea (adult) (pediatric); K21.9 Gastro-esophageal reflux disease without esophagitis
CPT/HCPCS: 45378

== ENCOUNTER 2023-11-07 14:47 | Outpatient (CLI) | payer BC, SELFPAY ==
[2023-11-07 23:12] LABS: PSA, Screening 1.4 ng/mL (<=4.5)
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
--- OUTSIDE RECORDS SUMMARY | 2023-11-09 10:29 | XMS_ITS | Continuity of Care Document ---
Author Name Unknown Organization [facility] Ambulatory Clinics Address [address] [place] [address] Care Team Providers Care Irrigation Equipment Remover Name Role Phone LUIS MANUEL LEE Primary Care Physician Encounter [facility] NBR [id number] Date(s): 08/29/22 - 08/29/22 [facility] Ambulatory Clinics [address] [place] [address]- [place] Encounter Diagnosis JAVON (obstructive sleep apnea)(Discharge Diagnosis) - 08/29/22 Discharge Disposition: Home or Self Care Attending Physician: Carlos Enrique Hatfield DO Medications atomoxetine 0 Refill(s) Start Date: 08/29/22 Status: Ordered Vyvanse 0 Refill(s) Start Date: 08/29/22 Status: Ordered Vital Signs Most recent to oldest [Reference Range]: 1 Peripheral Pulse Rate [60-100 bpm] 62 bp m (08/29/22 2:49 PM) Blood Pressure [90-140/60-90 mmHg] 136/8 4mmHg (08/29/22 2:49 PM) Weight 102.06 kg (08/29/22 2:49 PM) Weight Measured (lbs) 225.004 lb (08/29/22 2:49 PM) Height 185.42 cm (08/29/22 2:49 PM) Height/Length Measured (inches) 73 inch (08/29/22 2:49 PM) BSA Measured 2.29 m2 (08/29/22 2:49 PM) Body Mass Index 29.69 kg/m2 (08/29/22 2:49 PM) Patient Care team information Care Team Personnel Name: LUIS MANUEL LEE Position: No Access Member Role: Primary Care Physician Address: Address: [address] [address]
== END 2023-11-07 14:48 | disposition home or self-care (01) ==
LOC: LBO 14:47
PROVIDERS: PCP Family Medicine; Visit Provider Family Medicine
DX: Z12.5 Encounter for screening for malignant neoplasm of prostate (principal)
CPT/HCPCS: 36415; 84153

== ENCOUNTER 2024-01-10 06:40 | Emergency (ER) | payer BC, SELFPAY ==
[2024-01-10 06:43] VITALS: BP 171/73; PULSE 80; RESP 16; TEMP 37.2; O2SAT 99
[2024-01-10 07:11] VITALS: BP 171/73; PULSE 80; RESP 16; TEMP 37.2; O2SAT 99
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
[2024-01-10] MEDS: Bacitracin 1 PACKET (07:15)
[2024-01-10] MEDS: Cephalexin 500 MG CAP PO (07:19)
== END 2024-01-10 07:20 | disposition home or self-care (01) ==
LOC: ER 07:29
PROVIDERS: Emergency Provider Emergency Medicine; PCP Family Medicine
DX: L03.115 Cellulitis of right lower limb (principal); Z87.891 Personal history of nicotine dependence
CPT/HCPCS: 99283

== ENCOUNTER 2024-01-11 10:01 | Outpatient (REF) | payer BC, SELFPAY | END 2024-01-11 10:02 | disposition home or self-care (01) | LOC: LBN 10:01 | PROVIDERS: PCP Family Medicine; Visit Provider Family Medicine | DX: L03.115 Cellulitis of right lower limb (principal) | CPT/HCPCS: 87077; 87070; 87205 ==

== ENCOUNTER 2024-12-16 08:22 | Emergency (ER) | payer BC, SELFPAY ==
--- NOTE | 2024-12-16 08:25 | W.ED.GENAD ---
Discharge Plan Disposition Patient Disposition: Home Discharge Details Clinical Impression: Left knee pain Primary Care Provider: Hammad Yusuf ED Provider: Phyllis Miller Home Meds and New Rx's Prescriptions: No Action triamcinolone acetonide 0.1 % cream 1 applic Topical DAILY PRN (Reason: BLE rashes) Qty: 80 3RF econazole nitrate 1 % cream 1 applic Topical DAILY PRN (Reason: groin rash) Qty: 30 3RF gabapentin 800 mg tablet 800 mg PO TID Qty: 270 3RF lisdexamfetamine [Vyvanse] 40 mg capsule 40 mg PO DAILY MDD 40 mg Qty: 28 0RF lisdexamfetamine [Vyvanse] 40 mg capsule 40 mg PO DAILY MDD 40 mg Qty: 28 0RF lisdexamfetamine [Vyvanse] 40 mg capsule 40 mg PO DAILY MDD 40 mg Qty: 28 0RF acetaminophen 325 MG tablet 650 mg PO DAILY PRN loratadine 10 MG tablet 10 mg PO DAILY PRN famotidine 20 MG tablet 20 mg PO DAILY PRN hydrochlorothiazide 25 mg tablet 25 mg PO DAILY Qty: 90 3RF lisinopril 20 mg tablet See Rx Instructions .ROUTE .COMPLEX Qty: 90 3RF Dose Instruction: TAKE ONE TABLET BY MOUTH EVERY DAY Rx Instructions: TAKE ONE TABLET BY MOUTH EVERY DAY ibuprofen 600 mg tablet 600 mg PO TID PRN (Reason: pain) Qty: 180 5RF Discharge Instructions Instructions: Knee Pain ED Additional Instructions: Please call [facility] to schedule follow-up appointment. Referral to physical therapy may be helpful. You may continue to use Tylenol, ice, and elevation for comfort. Rest as needed. You may try Fausto bandage for support if needed. Return to emergency care if you develop new leg weakness, swelling of the knee, redness/warmth of the knee, fevers associated with knee pain, or if you are very worried and need to be rechecked again immediately Referrals: Hammad Yusuf DO [Primary Care Provider] - HPI General Date/Time Provider Initiated Documentation: 12/16/24 08:24. HPI Narrative: Peter is a 64year old male who presents to the emergency department today for evaluation of left knee pain. He reports that he has had some discomfort in his left knee over the last week and a half, last night had discomfort while walking down steps, denies trauma or twisting motion. Pain is aggravated with movement, flexion/extension, and twisting motions. No distal numbness/tingling, swelling to the knee, hip pain, ankle pain, fever/chills, general malaise, or other concerns. No history of trauma to this knee. He does have right knee arthritis, says that this feels different. He took 600 mg ibuprofen (ice without much improvement of symptoms. Past medical history is significant for ADHD, GERD, BPPV, depression, JAVON, venous insufficiency and varicose veins bilaterally, arthritis, and TBI. I did review previous medical records, including office visit from 10/02/[address] Yusuf. Physical exam reassuring. Peter is alert and oriented, no acute distress. Full flexion and extension of knee. Able to ambulate with slight limp. No obvious joint laxity with varus/valgus stress. Distal sensation intact. No pain with palpation of the ankle, lower leg, or hip. No erythema, warmth, or swelling to the knee or distal lower leg. D/dx includes but is not limited to: Osteoarthritis, Winslow's cyst, ligamentous and meniscal injury. No red flags concerning for fracture. DVT at this time. I independently interpreted the following tests: Left knee x-ray, no obvious abnormalities noted. This was confirmed by radiologist Overall workup today reassuring, unclear etiology of left knee pain, but likely related to degenerative changes. Recommend follow-up with PCP for PT referral and further evaluation as needed. Reviewed discharge instructions with patient, including symptomatic management and red flags indicating need for return to emergency care Related Data Home Medications ?Medication ?Instructions ?Recorded ?Confirmed acetaminophen 325 mg tablet 650 mg PO DAILY PRN 02/20/13 12/16/24 famotidine 20 mg tablet 20 mg PO DAILY PRN 02/20/13 12/16/24 loratadine 10 mg tablet 10 mg PO DAILY PRN 02/20/13 12/16/24 triamcinolone acetonide 0.1 % 1 applic topical DAILY PRN BLE 01/10/21 12/16/24 topical cream rashes #80 grams econazole nitrate 1 % topical cream 1 applic topical DAILY PRN groin 10/11/23 12/16/24 rash #30 grams gabapentin 800 mg tablet 800 mg PO TID #270 tabs 01/11/24 12/16/24 hydrochlorothiazide 25 mg tablet 25 mg PO DAILY #90 tabs 02/12/24 12/16/24 lisinopril 20 mg tablet See Rx Instructions .Route 06/02/24 12/16/24 .COMPLEX #90 tabs ibuprofen 600 mg tablet 600 mg PO TID PRN pain #180 tabs 07/07/24 12/16/24 lisdexamfetamine 40 mg capsule 40 mg PO DAILY #28 caps 10/02/24 12/16/24 (Vyvanse) lisdexamfetamine 40 mg capsule 40 mg PO DAILY #28 caps 10/02/24 12/16/24 (Vyvanse) lisdexamfetamine 40 mg capsule 40 mg PO DAILY #28 caps 10/02/24 12/16/24 (Vyvanse) Previous Rx's ?Medication ?Instructions ?Recorded triamcinolone acetonide 0.1 % 1 applic topical DAILY PRN BLE 01/10/21 topical cream rashes #80 grams econazole nitrate 1 % topical cream 1 applic topical DAILY PRN groin 10/11/23 rash #30 grams gabapentin 800 mg tablet 800 mg PO TID #270 tabs 01/11/24 hydrochlorothiazide 25 mg tablet 25 mg PO DAILY #90 tabs 02/12/24 lisinopril 20 mg tablet See Rx Instructions .Route 06/02/24 .COMPLEX #90 tabs ibuprofen 600 mg tablet 600 mg PO TID PRN pain #180 tabs 07/07/24 lisdexamfetamine 40 mg capsule 40 mg PO DAILY #28 caps 10/02/24 (Vyvanse) lisdexamfetamine 40 mg capsule 40 mg PO DAILY #28 caps 10/02/24 (Vyvanse) lisdexamfetamine 40 mg capsule 40 mg PO DAILY #28 caps 10/02/24 (Vyvanse) Allergies Allergy/AdvReac Type Severity Reaction Status Date / Time No Known Allergies Allergy Verified 12/16/24 08:41 General YENI: 3 Review of Systems Narrative: see HPI Exam Const General: cooperative, healthy appearing, comfortable, no acute distress, well developed and well groomed Nutritional Appearance: average body habitus and well nourished Orientation: alert and oriented x3 Resp Effort & Inspection: normal respiratory effort and able to speak in complete sentences Skin General skin exam: no rashes or lesions noted Neuro Gait: normal gait Motor: muscle tone normal throughout and strength 5/5 throughout Sensory Exam: no sensory deficits noted Extrem Left lower extremity: normal to inspection, full ROM, no joint enlargement and knee Details: normal ROM and knee ligament exam normal; no tenderness, no swelling, no abrasions, no lacerations, no ecchymosis, no crepitus, no foreign bodies, no penetrating wound, no deformity and no unusual warmth Medical Decision Making Imaging Data Radiologic Study: Radiologist's impression: Accession No. : [id number] Creator : KAVEH SMITH Dictator : KAVEH SMITH Proposal Rep : Rfid Technician : KAVEH SMITH Approver2 : Report Date : 12/16/2024 10:15:31 Exam(s) XR KNEE LT 4V AP,LAT,ZEV,PAT EXAM: XR KNEE LT 4V AP,LAT,ZEV,PAT CLINICAL HISTORY: L knee pain w/ambulation/mvmt (no trauma). TECHNIQUE: 2D digital imaging was performed. Three views. COMPARISON: CR XR KNEE LT 3V AP,LAT,ZEV from 10/02/2019 FINDINGS: BONES: No acute fracture is present. No bony destructive lesion is seen. JOINTS: Moderate narrowing of the medial femoral tibial joint and lateral patellofemoral joint. Periarticular spurring. No joint effusion is seen. SOFT TISSUE: Normal. IMPRESSION: Degenerative changes. No acute abnormality DATA REPOSITORY: RADIATION DOSE DELIVERED: Quality:SDOH Health Related Social Needs: Health related social needs details None PFSH All Active Problems (Updated 12/16/24 @ 10:48 by Phyllis Ortiz) Left knee pain (Acute) Lateral epicondylitis of both elbows (Acute) Excessive cerumen in both ear canals (Acute) Venous stasis dermatitis of both lower extremities (Chronic) w/out ulceration Cellulitis of hand, left (Acute) Arthritis of knee, right (Acute) Family history of prostate cancer (Acute) Adenoma of large intestine (Acute 07/04/12) SESSILE SERRATED ADENOMA: DR PORRAS DUE COLONOSCOPY 06/2015 Benign paroxysmal vertigo (Acute 06/02/13) Depressive disorder, not elsewhere classified (Chronic 06/02/13) Diverticulosis of large intestine without hemorrhage (Acute 06/02/13) Erectile dysfunction (Acute 12/09/12) Gastroesophageal reflux disease (Acute 12/07/11) Plantar fasciitis, right (Acute) ADHD (attention deficit hyperactivity disorder), combined type (Acute) TBI (traumatic brain injury) (Acute) Peripheral neuropathy (Acute) SOB (shortness of breath) (Acute) Irregular heart beat (Acute) Anxiety (Chronic) Tingling in extremities (Acute) Obesity (Chronic) Snoring (Acute) Varicose veins of both lower extremities (Acute) w/inflammation Lower extremity edema (Acute) Venous insufficiency (Acute) Of both lower extremities Essential hypertension (Acute) Obstructive sleep apnea (adult) (pediatric) (Acute 06/08/21) 06/13/22 [facility] for discussion of oral appliance Wound healing, delayed (Acute) Arthritis of left glenohumeral joint (Acute) Left rotator cuff tear (Acute) Tendinitis of long head of biceps brachii of left shoulder (Acute) Screen for colon cancer (Acute) Medical History (Updated 12/16/24 @ 10:48 by Phyllis Ortiz) Neuropathy feet TBI (traumatic brain injury) Pt. 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 Depression Surgical History (Updated 05/21/23 @ 13:46 by Kelley Jorge) H/O prior ablation treatment (07/05/21) right GSV ablation and stab phlebetomy [facility] [place] Vascular (varicose veins in leg) Tonsillectomy and adenoidectomy Open Carpal Tunnel release right, left Colonoscopy - MAC (05/21/23) Colonoscopy - IV Sedation (05/14/15) Family History Grandmother Personal history of malignant neoplasm colon cancer Mother COPD (chronic obstructive pulmonary disease) Father , age 66, cause: [place],Prostate cancer Prostate cancer Myocardial infarction Depression OCD (obsessive compulsive disorder) Sister Diabetes Uncle Lung cancer Paternal Grandfather Alcohol abuse Social History (Updated 12/20/23 @ 16:47 by Justina Ardon) Smoking/Tobacco Use Status: Former Tobacco Use Quit Date: 10/22/89 Tobacco: How many years used: 10 Second Hand Exposure: No Smoking risk assessment performed?: Yes Alcohol Intake: never Drug use: Never Substance use type: does not use Adopted: No Caregiver/Support person: No Foster care: No Household members: spouse Housing: house Number of Children: 0 number of grandchildren: 0 Communication Needs: Corrective Lenses Education Level: master's degree Do you need help understanding health information?: Rarely 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 - [employer] Pets and animals: No Sexually active: No Do you think of yourself as: straight/heterosexual Current gender identity: male What is your relationship status?: How often do you talk on the phone with friends or family?: once per week How often do you get together with friends or relatives?: once per week Do you belong to any clubs or organized social groups?: yes Panel score (0-1 are the most socially isolated patients): 2 What type of physical activity do you participate in: walking and other Details: Stretches; Lifting Nidia/Cheondoism: Buddhism Special nidia needs: No Seatbelt use: always Helmet use: Yes Helmet use: always Drive intox or ride w/intox farm truck driver: No Working smoke detector in home: Yes Fire extinguisher in home: Yes Carbon monox detector in home: Yes Do you feel safe at home: Yes Do you feel safe in your relationship?: Yes
--- NOTE | 2024-12-16 08:30 | DI.RAD_ITS ---
Exam(s) XR KNEE LT 4V AP,LAT,ZEV,PAT EXAM: XR KNEE LT 4V AP,LAT,ZEV,PAT CLINICAL HISTORY: L knee pain w/ambulation/mvmt (no trauma). TECHNIQUE: 2D digital imaging was performed. Three views. COMPARISON: CR XR KNEE LT 3V AP,LAT,ZEV from 10/02/2019 FINDINGS: BONES: No acute fracture is present. No bony destructive lesion is seen. JOINTS: Moderate narrowing of the medial femoral tibial joint and lateral patellofemoral joint. Sandee articular spurring. No joint effusion is seen. SOFT TISSUE: Normal. IMPRESSION: Degenerative changes. No acute abnormality DATA REPOSITORY: RADIATION DOSE DELIVERED:
[2024-12-16 08:39] VITALS: BP 124/78; PULSE 68; RESP 18; TEMP 36.3; O2SAT 97
[2024-12-16 10:56] VITALS: BP 124/78; PULSE 68; RESP 18; TEMP 36.3; O2SAT 97
== END 2024-12-16 10:56 | disposition home or self-care (01) ==
PROVIDERS: Emergency Provider Nurse Practitioner Family; PCP Family Medicine
DX: M25.562 Pain in left knee (principal); I10 Essential (primary) hypertension; Z87.891 Personal history of nicotine dependence
CPT/HCPCS: 99283; 73564